=== PATIENT | male | born 1930 | race Caucasian/White ===

== ENCOUNTER → 2017-03-24 | Day surgery (SDC) | payer OTHER ==
[2017-03-18 10:03] VITALS: Ht 171.5 cm; Wt 88.6 kg
[~2017-03-24] VITALS: Ht 171.5 cm; Wt 88.6 kg
[~2017-03-24] MED LIST: 500ML BSS 0.3ML EPI 1:1000PF IRRIG ONE; ACETAMINOPHEN 325 MG TAB PO PRN; ADVIN10/60 INH; ALL300 PO; AMVISC PLUS 0.8ML SYRINGE INT OCU ONE; ATROPINE SULFATE 0.1 MG/ML 5ML SYR IV PRN; AcetaZOLAMIDE 250 MG TAB PO SCH; BETAXOLOL HCL 0.25% OP SUSP PER DROP CHARGE OPR SCH; BRIMONIDINE TART 0.2% OP SOLN PER DROP CHARGE ONE; BSS FLUSH ONE; CLR10 PO; DIFL0.0519; DMX250; DTRSR/2 PO; ENDOCOAT 0.85ML SYRINGE INT OCU ONE; EpHEDrine SULFATE INJ 50 MG/ML AMP IV PRN; EpINEphrine INJ 1MG/ML AMP 1 MG/ML AMP ONE; FIBER PO; HYT/2 PO; LACTATED RINGER'S 1000ML 500 ML IV SCH; LIDOCAINE 4% OP SOLN DROP CHARGE ONE; LIDOCAINE 4% OP SOLN DROP CHARGE OPR SCH; LIDOCAINE HCL 1% MPF 2 ML VIAL ONE; LORA-741 PO; MIDAZOLAM HCL 1 MG/ML 2ML VIAL ONE; MOXIFLOXACIN OPH SOLN PER DROP CHARGE ONE; OCUCOAT 1 ML SOLN IO ONE; OFLO0.3S OP; ONDANSETRON INJ 2 MG/ML 2 ML VIAL IV PRN; POVIDONE-IODINE OP SOLN 30 ML BTL ONE; PROPARACAINE 0.5% OP SOLN PER DROP CHARGE OPR SCH; PRT40 PO; PRVC/40 PO; TOBRAMYCIN/DEXAMETHASONE OPH OINT PER APPLN CHARGE ONE; VERA180T15 PO
--- NOTE | 2017-03-24 06:40 | History & Physical Bridge - [place] ---
H&P Re-Evaluation Bridge Note: I have examined the patient, reviewed the History & Physical and in the interval since the performance of the History & Physical I have noted the following changes of clinical significance: No changes noted
[2017-03-24] MEDS: PHENYLEPHRINE HCL 2.5% OP SOLN PER DROP CHARGE OPR SCH ×2 (07:00→07:05)
[2017-03-24] MEDS: TROPICAMIDE 1% OP SOLN PER DROP CHARGE OPR SCH ×2 (07:01→07:07)
[2017-03-24] MEDS: CYCLOPENTOLATE HCL 1% OP SOLN PER DROP CHARGE OPR SCH ×2 (07:02→07:08)
[2017-03-24] MEDS: MOXIFLOXACIN OPH SOLN PER DROP CHARGE OPR SCH ×2 (07:03→07:14)
--- NOTE | 2017-03-24 08:05 | Discharge Instructions-SurgCtr ---
Discharge Instructions Date of Service Mar 24, 2017. Visit Reason for Visit: Cataract Right Eye Discharge Discharge Diagnosis / Problem: lens implant right eye Discharge Goals Goal(s): Improve function Activity Recommendations Activity Limitations: resume your previous activity Lifting Limitations: no more than 10 pounds Exercise/Sports Limitations: gradually increase as tolerated May Resume Sexual Activity: when tolerated Shower/Bathe: tomorrow Driving or Machine Use: resume 1 day after discharge Anesthesia . Post Anesthesia Instructions: If you have had General Anesthesia or IV Sedation: * Do not drive today. * Resume driving when surgeon permits. * Do not make important decisions or sign legal documents today. * Call surgeon for: 1. Temperature elevations greater than 101 degrees F. 2. Uncontrollable pain. 3. Excessive bleeding. 4. Persistent nausea and vomiting. 5. Medication intolerance (nausea, vomiting or rash). * For nausea and vomiting use only clear liquids such as: tea, soda, bouillon until nausea subsides, then gradually increase diet as tolerated. * If you have any concerns or questions, call your surgeon's office. If physician is unavailable and it is an emergency, call 911 or go to the nearest emergency room. . Instructions / Follow-Up Instructions / Follow-Up ACTIVITY RECOMMENDATIONS: * Light activities. * Mild irritation and blurred vision are common for the first few days. * You may walk outside, read, watch television. * Redness around the white part of the eye is common. MEDICATIONS: Resume previous medications unless instructed otherwise by your surgeon. * Take white Diamox (Acetazolamide) tablet at 1 pm today. Start all eye drops at 1 pm today: * Eye drops (today and tomorrow): Durezol - one drop in operative eye every 3 hours while awake Ofloxacin - one drop in operative eye every 3 hours while awake SPECIAL CARE INSTRUCTIONS: * Tape plastic shield over eye to sleep at night. Call your doctor at with any concerns or problems. FOLLOW UP VISIT: Follow-up with Dr Hughes at [place] office as scheduled. Diet Recommendations Home Diet: no limitations Procedures Procedures Performed: cataract extraction with lens implant Pending Studies Studies pending at discharge: no Medical Emergencies . Who to Call and When: Medical Emergencies: If at any time you feel your situation is an emergency, please call 911 immediately. . Non-Emergent Contact Non-Emergency issues call your: Wire Rope Sling Maker Call Non-Emergent contact if: your pain is not controlled [phone] . . "Provider Documentation" section prepared by Lavon Hughes. .
--- NOTE | 2017-03-24 08:06 | [facility] Operative Report ---
Operative Report Date of Service Mar 24, 2017. Operative Report 1. PREOPERATIVE DIAGNOSIS: Senile nuclear cataract, right eye. 2. POSTOPERATIVE DIAGNOSIS: Senile nuclear cataract, right eye. 3. PROCEDURE: Phacoemulsification of right cataract with posterior chamber lens implant, type [employer]ch [employer] Lomb, model MI60L, power +21.0 diopters. ANESTHESIA: Local standby. SURGEON: Dr. Hughes. COMPLICATIONS: None. OPERATING TIME: 10 minutes. 4. OPERATION AND FINDINGS: DESCRIPTION OF PROCEDURE: The right pupil was dilated. The anesthetic was administered using a topical technique. The right eye was prepped and draped. A speculum was placed. A clear corneal incision was formed. The chamber was filled with Amvisc Plus and Endocoat. Epinephrine solution was used. A paracentesis was placed. A capsulorrhexis was performed. The nucleus was hydrodissected. A dense lens was removed with phacoemulsification. Time was 7.15 seconds. The aspiration unit was used to remove the cortex. The capsule was filled with Amvisc Plus. The lens implant was folded and placed into the capsule. The incision was hydrated. The Amvisc was aspirated. The wound was secure. The chamber was deep. The pupil was round. Brimonidine, TobraDex ointment and Vigamox solution were placed. The speculum was removed. The patient was returned to the Recovery Room in stable condition. I attest to the content of the Intraoperative Record and any orders documented therein. Any exceptions are noted below. The scribe's documentation has been prepared in my presence, under my direction and personally reviewed by me in its entirety. I confirm that the note above accurately reflects all work, treatment, procedures, and medical decision making performed by me. I personally scribed for Lavon Hughes M.D. (ALISA) on 03/24/17 at 08:06. Electronically submitted by Araceli Vieyra ([facility]).
[2017-03-24 08:10] VITALS: TEMP 36.5
--- NOTE | 2017-03-24 08:19 | Anesthesia Progress Nt - [facility] ---
Anesthesia Post Op Note Date & Time Mar 24, 2017 at 08:19 Vital Signs Pain Intensity: 0 Vital Signs Past 12 Hours Date Time Temp Pulse Resp B/P (MAP) Pulse Ox O2 Delivery O2 Flow Rate FiO2 03/24/17 08:10 36.5 68 16 156/84 (108) 96 Room Air 03/24/17 06:47 36.5 79 20 171/95 (120) 94 Room Air Notes Mental Status: alert / awake / arousable, participated in evaluation Pt Amnestic to Procedure: Yes Nausea / Vomiting: adequately controlled Pain: adequately controlled Airway Patency, RR, SpO2: stable & adequate BP & HR: stable & adequate Hydration State: stable & adequate Anesthetic Complications: no major complications apparent
[2017-03-24 08:33] VITALS: BP 125/68; PULSE 68; O2SAT 95
== END | disposition home or self-care (01) ==
LOC: X.SURG 06:28
PROVIDERS: ATTEND Specialist
DX: H25.11 Age-related nuclear cataract, right eye (principal); I10 Essential (primary) hypertension

== ENCOUNTER → 2017-04-16 | Outpatient (CLI) | payer OTHER ==
[~2017-04-16] MED LIST changes: -500ML BSS 0.3ML EPI 1:1000PF IRRIG ONE; -ACETAMINOPHEN 325 MG TAB PO PRN; -AMVISC PLUS 0.8ML SYRINGE INT OCU ONE; -ATROPINE SULFATE 0.1 MG/ML 5ML SYR IV PRN; -AcetaZOLAMIDE 250 MG TAB PO SCH; -BETAXOLOL HCL 0.25% OP SUSP PER DROP CHARGE OPR SCH; -BRIMONIDINE TART 0.2% OP SOLN PER DROP CHARGE ONE; -BSS FLUSH ONE; -ENDOCOAT 0.85ML SYRINGE INT OCU ONE; -EpHEDrine SULFATE INJ 50 MG/ML AMP IV PRN; -EpINEphrine INJ 1MG/ML AMP 1 MG/ML AMP ONE; -LACTATED RINGER'S 1000ML 500 ML IV SCH; -LIDOCAINE 4% OP SOLN DROP CHARGE ONE; -LIDOCAINE 4% OP SOLN DROP CHARGE OPR SCH; -LIDOCAINE HCL 1% MPF 2 ML VIAL ONE; -MIDAZOLAM HCL 1 MG/ML 2ML VIAL ONE; -MOXIFLOXACIN OPH SOLN PER DROP CHARGE ONE; -OCUCOAT 1 ML SOLN IO ONE; -ONDANSETRON INJ 2 MG/ML 2 ML VIAL IV PRN; -POVIDONE-IODINE OP SOLN 30 ML BTL ONE; -PROPARACAINE 0.5% OP SOLN PER DROP CHARGE OPR SCH; -TOBRAMYCIN/DEXAMETHASONE OPH OINT PER APPLN CHARGE ONE
[2017-04-16 14:07] LABS: BLOOD UREA NITROGEN 14 mg/dl (7-18); BUN/CREATININE RATIO 9.9 (10-20); CALCIUM 8.9 mg/dl (8.5-10.1); CARBON DIOXIDE 27 mmol/L (21-32); CHLORIDE 106 mmol/L (98-107); GLUCOSE 141 mg/dl (70-99); POTASSIUM 4.1 mmol/L (3.5-5.1); SODIUM 141 mmol/L (136-145)
== END | disposition home or self-care (01) ==
LOC: C.LAB1850 11:37
PROVIDERS: ATTEND Physician Assistant Medical
DX: R42 Dizziness and giddiness (principal)

== ENCOUNTER → 2017-05-03 | Outpatient (CLI) | payer OTHER ==
[2017-05-03 11:45] LABS: PROSTATE SPECIFIC ANTIGEN 0.019 ng/ml (0.000-4.000); THYROID STIMULATING HORMONE 1.15 uIu/ml (0.300-4.500)
== END | disposition home or self-care (01) ==
LOC: C.LAB1850 10:01
PROVIDERS: ATTEND Physician Assistant Medical
DX: R68.89 Other general symptoms and signs (principal); C61 Malignant neoplasm of prostate

== ENCOUNTER → 2017-09-06 | Outpatient (CLI) | payer OTHER ==
--- NOTE | 2017-09-06 12:01 | DIAGNOSTIC IMAGING REPORT ---
CHEST 2 VIEWS ROUTINE HISTORY: 86 years-old Male R05 [id number] acute cough COMPARISON: Chest radiograph 04/28/2015 TECHNIQUE: PA and lateral views of the chest FINDINGS: Cardiac silhouette is mildly enlarged. Atherosclerosis of the aorta. No pneumothorax, pleural effusion, focal airspace consolidation or overt pulmonary edema. Bones of the chest appear grossly intact. IMPRESSION: No acute process. The above report was generated using voice recognition software. It may contain grammatical, syntax or spelling errors. Electronically signed by: Eliot Purcell M.D. 09/06/2017 12:00 PM Dictated Date/Time: 09/06/2017 11:59 AM
== END | disposition home or self-care (01) ==
LOC: C.RAD1850 11:38
PROVIDERS: ATTEND Physician Assistant Medical
DX: R05 Cough (principal)

== ENCOUNTER 2019-01-17 14:54 | Observation (INO) ==
[2019-01-17 15:31] LABS: Basophils # (auto) 0.03 K/uL (0-0.2); Basophils % (auto) 0.5 %; Eosinophils # (auto) 0.16 K/uL (0-0.5); Eosinophils % (auto) 2.4 %; Hematocrit (blood only) 43.6 % (42-52); Immature Granulocytes # (auto) 0.02 K/uL (0.00-0.02); Immature Granulocytes % (auto) 0.3 %; Lymphocytes # (auto) 1.35 K/uL (1.2-3.4); Lymphocytes % (auto) 20.5 %; Mean Corpuscular Hgb Conc 34.4 g/dL (32-36); Mean Corpuscular Volume 88.6 fL (80-100); Mean Platelet Volume 9.7 fL (7.4-10.4); Monocytes # (auto) 0.53 K/uL (0.11-0.59); Monocytes % (auto) 8.1 %; Neutrophils # (auto) 4.48 K/uL (1.4-6.5); Neutrophils % (auto) 68.2 %; Platelet Count 122 K/uL (130-400); RDW Coefficient of Variation 14.1 % (11.5-14.5); RDW Standard Deviation 45.7 fL (36.4-46.3); Red Blood Count 4.92 M/uL (4.7-6.1); White Blood Count 6.57 K/uL (4.8-10.8)
[2019-01-17 15:40] LABS: INR 1.1 (0.9-1.1); Partial Thromboplastin Time 27.2 Seconds (21.0-31.0); Prothrombin Time 10.9 Seconds (9.0-12.0)
[2019-01-17 15:51] LABS: Alanine Aminotransferase 18 U/L (12-78); Albumin Level 3.6 gm/dl (3.4-5.0); Aspartate Aminotransferase 15 U/L (15-37); BUN Creatinine Ratio 10.2 (10-20); Blood Urea Nitrogen 12 mg/dl (7-18); Calcium 9.3 mg/dl (8.5-10.1); Carbon Dioxide 28 mmol/L (21-32); Chloride 107 mmol/L (98-107); Est GFR (African American) 61.8; Est GFR (Non-African American) 53.4; Glucose 83 mg/dl (70-99); Magnesium 2.3 mg/dl (1.8-2.4); Sodium 142 mmol/L (136-145)
[2019-01-17 15:55] LABS: Alkaline Phosphatase 90 U/L (45-117); Bilirubin,Total 0.7 mg/dl (0.2-1); Globulin 3.5 gm/dl (2.5-4.0); Total Protein 7.1 gm/dl (6.4-8.2); Troponin I < 0.015 ng/ml (0-0.045)
--- NOTE | 2019-01-17 15:58 | CT Scan Report ---
CT head/brain wo con CT DOSE: 638.56 mGycm HISTORY: Mental status change Stroke evaluation TECHNIQUE: Multiaxial CT images of the head were performed without the use of intravenous contrast. A dose lowering technique was utilized adhering to the principles of ALARA. Comparison: MRI 09/26/2018 Findings: The paranasal sinuses and mastoid air cells are clear. The calvarium and skull base are int act. The ventricles and sulci are within normal limits. There is no mass, hematoma, midline shift, or acute infarct. 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 Moderate periventricular chronic small v essel change throughout both cerebral hemispheres. Ventricular system is midline. Impression: 1. Chronic and pre-existing change. 2. No acute intracranial abnormality. The above report was generated using voice recognition software. It may contain grammatical, syntax or spelling errors. Electronically signed by: Don Morfin M.D. 01/17/2019 3:56 PM
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
[2019-01-17] MEDS ORDERED: MAGNESIUM HYDROXIDE SUSP 30 ML UDC PO PRN (19:32)
[2019-01-17] MEDS ORDERED: PHARMACIST DISCHARGE MED REC CONSULT PRN (19:32)
[2019-01-17] MEDS ORDERED: METOPROLOL TARTRATE 1 MG/ML VIAL IV PRN (19:32)
[2019-01-17] MEDS ORDERED: ONDANSETRON INJ 2 MG/ML 2 ML VIAL IV PRN (19:32)
[2019-01-17] MEDS ORDERED: ONDANSETRON 8MG OD TAB PO PRN (19:32)
[2019-01-17] MEDS ORDERED: DOCUSATE SODIUM 100 MG CAP PO PRN (19:32)
[2019-01-17] MEDS ORDERED: TRIAMCINOLONE ACET 0.1% CR 15 GM TUBE TOP PRN (19:32)
[2019-01-17] MEDS ORDERED: ACETAMINOPHEN 325 MG TAB PO PRN (19:32)
[2019-01-17 20:31] LABS: Lyme Ab IgG w/WB Rflx Negative (Negative)
[2019-01-17 20:33] LABS: Lyme Ab IgM w/WB Rflx Equivocal (Negative)
[2019-01-17] MEDS ORDERED: GADOBUTROL 65ML VIAL IV PRN (21:27)
--- NOTE | 2019-01-17 21:29 | Magnetic Resonance Report ---
MR angio head wo con HISTORY: 88 years-old Male Stroke-like sx acute dizziness with strokelike symptoms COMPARISON: ] MRI brain and CTA head of same day TECHNIQUE: MRI of the head was obtained without IV contrast utilizing 3-D [id number]-[id number] sequencing w ith MIP reformats. All measurements were obtained according to NASCET criteria. FINDINGS: The bilateral internal carotid arteries, middle and anterior cerebral arteries are widely patent and within normal limits. The left vertebral artery appears to be dominant. The right before segment appe ars to terminate into the right PICA. Basilar artery is unremarkable. origin of the left emt paramedic ior cerebral artery. Bilateral posterior cerebral arteries appear widely patent and unremarkable. No aneurysm, dissection, high-grade stenosis or proximal branch occlusion identified. IMPRESSION: Unremarkable MRA of the head. The above report was generated using voice recognition software. It may contain grammatical, syntax o r spelling errors. Electronically signed by: Eliot Purcell M.D. 01/17/2019 9:28 PM
[2019-01-17] MEDS: PANTOprazole 40 MG TAB PO SCH (21:39)
[2019-01-17] MEDS: OXYBUTYNIN CHLORIDE 5 MG TAB PO SCH (21:39)
[2019-01-17] MEDS: VERAPAMIL HCL 180 MG TABCR PO SCH (21:39)
[2019-01-17] MEDS: FLUTICASONE/SALMETEROL 100/50 (ADVAIR) 14 PUFF/1 INHALER INH SCH (21:39)
[2019-01-17] MEDS: LORazepam 0.5 MG TAB PO PRN (21:42)
--- NOTE | 2019-01-17 21:52 | Magnetic Resonance Report ---
MR brain wo con HISTORY: 88 years-old Male Stroke-like sx acute dizziness with elevated blood pressure, blurry visio n, left-sided headache and strokelike symptoms COMPARISON: MRA of the head and neck of same day, brain MRI 09/26/2018 TECHNIQUE: Multiplanar multisequence MRI of the brain was obtained without the use of IV contrast. FINDINGS: Large sxczo-ug-wnpy supervisor long goods localizer images demonstrate no gross extracranial abnormality. There is no restricted diffusion to suggest acute or subacute infarction. Midline structures including the corpu s callosum, brainstem, optic chiasm, pituitary and pineal glands appear unremarkable on the sagittal T1 series. No cerebellar tonsillar herniation. Degenerative changes noted about the imaged cervical s pine. No acute intracranial hemorrhage, midline shift, abnormal extra-axial collections, hydrocephalus or i ntracranial mass. 7 mm remote lacunar infarction of the right thalamus. Age-related involutional goncalves ges with mild ex vacuo ventriculomegaly. Moderate T2/FLAIR hyperintensities about the white matter hollingsworth ggest chronic microvascular ischemic disease. Major flow voids at the level the skull base appear unr emarkable. Mild mucosal thickening of the paranasal sinuses. Prior bilateral cataract repair. Skull a nd soft tissues are within normal limits. IMPRESSION: 1. No acute intracranial abnormality, specifically no acute or subacute infarction. 2. Age-related involutional changes with moderate chronic microvascular ischemic disease. 3. Subcentimeter remote lacunar infarction of the right thalamus. The above report was generated using voice recognition software. It may contain grammatical, syntax o r spelling errors. Electronically signed by: Eliot Purcell M.D. 01/17/2019 9:51 PM
--- NOTE | 2019-01-17 21:59 | Magnetic Resonance Report ---
MR angio neck wo/w con HISTORY: 88 years-old Male Stroke-like sx acute dizziness with elevated blood pressure and acute str okelike symptoms COMPARISON: MRI brain and MRA head of same day TECHNIQUE: MRA of the neck was obtained both with and without the use of 8.5 mL Gadavist utilizing 3- D [id number]-mg-muhtmj sequencing with MIP reformats. All measurements were obtained according to NASCET cr iteria. FINDINGS: The large ehjsk-tb-oikb local delivery driver localizer images demonstrate no gross abnormality. Cardiomegaly. Motion degraded exam. Visualized bilateral common carotid arteries appear to be patent. Bilateral internal carotid arteries also appear to be patent. Luminal narrowing of less than 50% involves the proximal r ight ICA, likely secondary to atherosclerotic plaque formation. Dominant left vertebral artery with b ilateral vertebral arteries appear to be patent. The distal right vertebral artery appears to termina te into the right PICA. There is no aneurysm, dissection, high-grade stenosis or proximal branch occl usion identified. IMPRESSION: 1. Luminal narrowing of less than 50% involves the proximal right ICA, likely secondary to underlying after atherosclerotic plaque formation. 2. Otherwise unremarkable MRA of the neck. The above report was generated using voice recognition software. It may contain grammatical, syntax o r spelling errors. Electronically signed by: Eliot Purcell M.D. 01/17/2019 9:58 PM
[2019-01-18] MEDS: PANTOprazole 40 MG TAB PO SCH ×2 (08:06→20:57)
[2019-01-18] MEDS: LISINOPRIL 5 MG TAB PO SCH (08:06)
[2019-01-18] MEDS: TERAZOSIN HCL 1 MG CAP PO SCH (08:06)
[2019-01-18] MEDS: PRAVASTATIN SOD 40 MG TAB PO SCH (08:06)
[2019-01-18] MEDS: OXYBUTYNIN CHLORIDE 5 MG TAB PO SCH ×2 (08:06→20:57)
[2019-01-18] MEDS: FLUTICASONE/SALMETEROL 100/50 (ADVAIR) 14 PUFF/1 INHALER INH SCH ×2 (08:06→20:56)
[2019-01-18] MEDS: VERAPAMIL HCL 180 MG TABCR PO SCH (08:06)
[2019-01-18] MEDS: ALLOPURINOL 300 MG TAB PO SCH (08:07)
[2019-01-18] MEDS ORDERED: ASPIRIN 81 MG ECTAB PO SCH (09:45)
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
[2019-01-18] MEDS: LORazepam 0.5 MG TAB PO PRN (20:59)
--- NOTE | 2019-01-18 21:25 | Hospitalist Progress Note ---
Date of Service January 18, 2019 Assessment & Plan (1) Lightheadedness: Likely related to hypertensive urgency Improved but still present despite improved blood pressures -Continue to monitor (2) Hypertensive urgency: Blood pressures 199/137 on admission, now much improved -Continue lisinopril 5 mg daily and home verapamil 180 mg daily -Titrate up on doses as needed (3) Hyperlipidemia: continue home pravastatin 20 mg daily (4) HTN (hypertension): As above, continue home meds (5) GERD (gastroesophageal reflux disease): continue home pantoprazole twice daily-has a history of PUD with gastric and duodenal ulcers in 2014 related to aspirin use (6) Anxiety: Rare ativan use, continue Ativan as needed (7) Gout: continue home allopurinol (8) Uses inhaler device: 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 (9) Basal cell carcinoma: L ear, plans for OR on 02.15 (10) Headache: Persists but is mild, could be related to hypertensive urgency Lyme titer is equivocal for IgM-Western blot pending -Continue acetaminophen as needed -No need to treat with doxycycline unless Western blot returns positive (11) History of stroke: 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 Has a mild frontal headache, no nausea but has a low appetite which his states is usual for him. He denies any further blurry vision. Denies chest pain or shortness of breath. He did work with PT and OT today and was a little unsteady on his feet as per nursing and PT notes. Telemetry with normal sinus rhythm with rates in the 60s to 80s. Blood pressure has improved since admission. I discussed the case with neurology. Review of Systems Review of Systems: All systems reviewed & are unremarkable except as noted in HPI & below Physical Exam Constitutional: WD/WN, vitals as above Eyes: PERRL, conjunctivae normal, anicteric sclerae ENMT: external ear and nose normal, oropharynx normal Neck: trachea midline, no thyromegaly Respiratory: normal respiratory effort, lungs clear to auscultation Cardiovascular: RRR, no murmur, no edema Gastrointestinal (Abdomen): normal bowel sounds, soft, nontender, no hepatosplenomegaly Musculoskeletal: Extremities: extremities normal to inspection; no cyanosis and no clubbing Skin: no rashes, warm and dry Neurologic: moves all extremities and awake; no focal motor deficits Psychiatric: A+Ox3, euthymic affect Results & Data Vital Signs (Past 12 Hours) Vital Signs Temp Pulse Pulse Resp BP Pulse Ox 01/18/19 19:27 36.5 C 66 19 112/65 98 01/18/19 17:24 62 01/18/19 15:52 36.5 C 70 17 110/64 94 01/18/19 12:00 36.2 C L 74 18 117/66 98 PG Care Time/CCT Total # of Minutes Spent Total Time Spent with Patient: Total time spent is greater than 50% in coordination of care (as documented) at patient's floor/unit and/or counseling patient:
[2019-01-19 06:34] LABS: Basophils # (auto) 0.03 K/uL (0-0.2); Basophils % (auto) 0.4 %; Eosinophils # (auto) 0.24 K/uL (0-0.5); Eosinophils % (auto) 3.4 %; Hematocrit (blood only) 41.3 % (42-52); Hemoglobin 14.4 g/dL (14.0-18.0); Immature Granulocytes # (auto) 0.01 K/uL (0.00-0.02); Immature Granulocytes % (auto) 0.1 %; Lymphocytes # (auto) 1.32 K/uL (1.2-3.4); Lymphocytes % (auto) 18.4 %; Mean Corpuscular Hgb Conc 34.9 g/dL (32-36); Mean Corpuscular Volume 88.8 fL (80-100); Mean Platelet Volume 9.6 fL (7.4-10.4); Monocytes # (auto) 0.68 K/uL (0.11-0.59); Monocytes % (auto) 9.5 %; Neutrophils # (auto) 4.88 K/uL (1.4-6.5); Neutrophils % (auto) 68.2 %; Platelet Count 128 K/uL (130-400); RDW Coefficient of Variation 14.1 % (11.5-14.5); RDW Standard Deviation 45.6 fL (36.4-46.3); Red Blood Count 4.65 M/uL (4.7-6.1); White Blood Count 7.16 K/uL (4.8-10.8)
[2019-01-19 07:02] LABS: BUN Creatinine Ratio 9.7 (10-20); Calcium 8.9 mg/dl (8.5-10.1); Creatinine Clr Calc Pharmacy 42.8 ml/min; Est GFR (African American) 60.6; Est GFR (Non-African American) 52.3; Potassium 3.9 mmol/L (3.5-5.1)
[2019-01-19] MEDS: CLOPIDOGREL BISULFATE 75 MG TAB PO SCH (08:14)
[2019-01-19] MEDS: FLUTICASONE/SALMETEROL 100/50 (ADVAIR) 14 PUFF/1 INHALER INH SCH ×2 (08:14→20:15)
[2019-01-19] MEDS: PRAVASTATIN SOD 40 MG TAB PO SCH (08:15)
[2019-01-19] MEDS: ALLOPURINOL 300 MG TAB PO SCH (08:15)
[2019-01-19] MEDS: PANTOprazole 40 MG TAB PO SCH ×2 (08:15→20:14)
[2019-01-19] MEDS: LISINOPRIL 5 MG TAB PO SCH (08:15)
[2019-01-19] MEDS: TERAZOSIN HCL 1 MG CAP PO SCH (08:16)
[2019-01-19] MEDS: OXYBUTYNIN CHLORIDE 5 MG TAB PO SCH ×2 (08:16→20:14)
[2019-01-19] MEDS: VERAPAMIL HCL 180 MG TABCR PO SCH (08:17)
[2019-01-19] MEDS ORDERED: LISINOPRIL 5 MG TAB PO SCH (09:00)
--- NOTE | 2019-01-19 19:58 | Hospitalist Progress Note ---
Date of Service January 19, 2019 Assessment & Plan (1) Lightheadedness: Likely related to hypertensive urgency and now completely resolved as blood pressures are much improved (2) Hypertensive urgency: Blood pressures 199/137 on admission, now much improved but remains slightly elevated at times -Increase lisinopril to 10 mg daily and 10 you home verapamil 180 mg daily -Titrate up on doses as needed (3) Hyperlipidemia: continue home pravastatin 20 mg daily (4) HTN (hypertension): As above, continue home verapamil and increase lisinopril 10 mg daily, and terazosin 2 mg daily Continue to monitor (5) GERD (gastroesophageal reflux disease): continue home pantoprazole twice daily-has a history of PUD with gastric a nd duodenal ulcers in 2015 related to aspirin use (6) Anxiety: Rare ativan use, continue Ativan as needed (7) Gout: No acute flare Continue home allopurinol (8) Uses inhaler device: 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 (9) Basal cell carcinoma: L ear, plans for OR on 02.15 (10) Headache: Now resolved and was likely related to hypertensive urgency which is now also resolved Lyme titer is equivocal for IgM-Western blot pending -Continue acetaminophen as needed -No need to treat with doxycycline unless Western blot returns positive (11) History of stroke: 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 with no residual deficits -Needs antiplatelet drug-has a history of PUD on aspirin -Started on Plavix 75 mg daily -Is on pravastatin-will increase dose to 40 mg -Echocardiogram with bubble study is negative for intra-atrial shunt (12) CKD (chronic kidney disease) stage 3, GFR 30-59 ml/min: GFR usually in the mid 40s Creatinine here stable and around baseline at 1.24 Avoid nephrotoxins -Renally dose all medications -Continues on NIKKO inhibitor (13) Thrombocytopenia: Platelets mildly low at 128-historically he has run on the lower side but this is the lowest he has been No evidence of bleeding, not overly concerning MCV is normal which makes B12 deficiency less likely Other cell lines are normal -Continue to follow over time (14) DVT prophylaxis: SCDs, and add Lovenox Disposition-repeat PT/OT evaluations recommending and patient has referral to [facility] He is medically stable for discharge at this time, awaiting insurance authorization He can remain on telemetry overnight Subjective Feeling much improved. No headache, no dizziness. Denies chest pain or shortness of breath. Still feeling a little off balance with walking. No nausea and is tolerating p.o. Blood pressures are much improved. Telemetry with normal sinus rhythm with rates in the 70s to 80s, he had a 25-second burst of atrial tachycardia Review of Systems Review of Systems: All systems reviewed & are unremarkable except as noted in HPI & below Physical Exam Constitutional: WD/WN, vitals as above Eyes: PERRL, conjunctivae normal, anicteric sclerae ENMT: external ear and nose normal, oropharynx normal Neck: trachea midline, no thyromegaly Respiratory: normal respiratory effort, lungs clear to auscultation Cardiovascular: RRR, no murmur, no edema Gastrointestinal (Abdomen): normal bowel sounds, soft, nontender, no hepatosplenomegaly Musculoskeletal: Extremities: extremities normal to inspection; no cyanosis and no clubbing Skin: no rashes, warm and dry Neurologic: moves all extremities and awake; no focal motor deficits Psychiatric: A+Ox3, euthymic affect Results & Data Vital Signs (Past 12 Hours) Vital Signs Temp Pulse Pulse Resp BP BP Pulse Ox 01/19/19 19:25 36.7 C 70 19 139/73 94 01/19/19 16:00 78 01/19/19 15:30 36.7 C 79 18 110/67 91 01/19/19 11:33 36.5 C 75 18 138/80 93 Laboratory Results 01/19/19 Range/Units 05:44 Sodium 141 (136-145) mmol/L Potassium 3.9 (3.5-5.1) mmol/L Chloride 108 H (98-107) mmol/L Carbon Dioxide 27 (21-32) mmol/L Anion Gap 6.0 (3-11) BUN 12 (7-18) mg/dl Creatinine 1.24 (0.6-1.4) mg/dl Est Cr Clr Drug Dosing 42.8 ml/min Est GFR ( Amer) 60.6 Est GFR (Non-Af Amer) 52.3 BUN/Creatinine Ratio 9.7 L (10-20) Glucose 98 (70-99) mg/dl Calcium 8.9 (8.5-10.1) mg/dl CBC notable for platelets 128, otherwise normal Diagnostic Findings Echocardiogram-normal EF, negative bubble study Lyme disease Western blot pending PG Care Time/CCT Total # of Minutes Spent Total Time Spent with Patient: Total time spent is greater than 50% in coordination of care (as documented) at patient's floor/unit and/or counseling patient:
[2019-01-19] MEDS: LORazepam 0.5 MG TAB PO PRN (20:18)
[2019-01-20] MEDS: TERAZOSIN HCL 1 MG CAP PO SCH (07:34)
[2019-01-20] MEDS: OXYBUTYNIN CHLORIDE 5 MG TAB PO SCH (07:34)
[2019-01-20] MEDS: ALLOPURINOL 300 MG TAB PO SCH (07:34)
[2019-01-20] MEDS: PANTOprazole 40 MG TAB PO SCH (07:34)
[2019-01-20] MEDS: FLUTICASONE/SALMETEROL 100/50 (ADVAIR) 14 PUFF/1 INHALER INH SCH (07:35)
[2019-01-20] MEDS: CLOPIDOGREL BISULFATE 75 MG TAB PO SCH (07:35)
[2019-01-20] MEDS: VERAPAMIL HCL 180 MG TABCR PO SCH (07:35)
[2019-01-20 07:56] LABS: Basophils # (auto) 0.04 K/uL (0-0.2); Basophils % (auto) 0.5 %; Eosinophils # (auto) 0.22 K/uL (0-0.5); Hematocrit (blood only) 44.2 % (42-52); Hemoglobin 15.4 g/dL (14.0-18.0); Immature Granulocytes # (auto) 0.02 K/uL (0.00-0.02); Immature Granulocytes % (auto) 0.3 %; Lymphocytes # (auto) 1.36 K/uL (1.2-3.4); Lymphocytes % (auto) 18.3 %; Mean Corpuscular Hgb Conc 34.8 g/dL (32-36); Mean Corpuscular Volume 88.9 fL (80-100); Mean Platelet Volume 9.9 fL (7.4-10.4); Monocytes # (auto) 0.61 K/uL (0.11-0.59); Monocytes % (auto) 8.2 %; Neutrophils # (auto) 5.18 K/uL (1.4-6.5); Neutrophils % (auto) 69.7 %; Platelet Count 138 K/uL (130-400); RDW Coefficient of Variation 14.1 % (11.5-14.5); RDW Standard Deviation 46.1 fL (36.4-46.3); Red Blood Count 4.97 M/uL (4.7-6.1); White Blood Count 7.43 K/uL (4.8-10.8)
[2019-01-20] MEDS ORDERED: ENOXAPARIN INJ 40 MG/0.4 ML SYR SQ SCH (08:00)
[2019-01-20 08:25] LABS: BUN Creatinine Ratio 10.7 (10-20); Calcium 9.3 mg/dl (8.5-10.1); Creatinine Clr Calc Pharmacy 39.6 ml/min; Est GFR (African American) 55.2; Est GFR (Non-African American) 47.6; Potassium 4.2 mmol/L (3.5-5.1)
[2019-01-20] MEDS ORDERED: PRAVASTATIN SOD 40 MG TAB PO SCH (09:00)
[2019-01-20] MEDS ORDERED: LISINOPRIL 10 MG TAB PO SCH (09:00)
[2019-01-20 23:35] LABS: 18KDIGG Band NONREACTIVE (NONREACTIVE); 23KDIGG Band NONREACTIVE (NONREACTIVE); 23KDIGM Band REACTIVE (NONREACTIVE); 28KDIGG Band NONREACTIVE (NONREACTIVE); 30KDIGG Band NONREACTIVE (NONREACTIVE); 39KDIGG Band NONREACTIVE (NONREACTIVE); 39KDIGM Band NONREACTIVE (NONREACTIVE); 41KDIGG Band REACTIVE (NONREACTIVE); 41KDIGM Band REACTIVE (NONREACTIVE); 45KDIGG Band REACTIVE (NONREACTIVE); 58KDIGG Band NONREACTIVE (NONREACTIVE); 66KDIGG Band REACTIVE (NONREACTIVE); 93KDIGG Band NONREACTIVE (NONREACTIVE); Lyme Antibodies, WB IgG NEGATIVE (NEGATIVE); Lyme Antibodies, WB IgM POSITIVE (NEGATIVE)
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
== END 2019-01-20 17:39 | disposition home health service (06) ==
LOC: 2S 14:54 → ED 14:54 → SUATTDRO 18:35 → 2S 19:02
DX: R51 Headache; D69.6 Thrombocytopenia, unspecified; N18.3 Chronic kidney disease, stage 3 (moderate); Z86.73 Personal history of transient ischemic attack (TIA), and cerebral infarction without residual deficits; I12.9 Hypertensive chronic kidney disease with stage 1 through stage 4 chronic kidney disease, or unspecified chronic kidney disease; M10.9 Gout, unspecified; R42 Dizziness and giddiness; C44.219 Basal cell carcinoma of skin of left ear and external auricular canal; K21.9 Gastro-esophageal reflux disease without esophagitis; Z79.899 Other long term (current) drug therapy; E78.5 Hyperlipidemia, unspecified; I16.0 Hypertensive urgency

== ENCOUNTER 2021-08-20 02:56 | Observation (INO) ==
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
[2021-08-20] MEDS ORDERED: SODIUM CHLORIDE 0.9% 1000ML 1,000 ML IV SCH (03:15)
[2021-08-20 03:38] LABS: Basophils # (auto) 0.01 K/uL (0-0.2); Basophils % (auto) 0.1 %; Eosinophils # (auto) 0.15 K/uL (0-0.5); Eosinophils % (auto) 1.8 %; Hematocrit (blood only) 39.6 % (42-52); Hemoglobin 13.4 g/dL (14.0-18.0); Immature Granulocytes # (auto) 0.03 K/uL (0.00-0.02); Immature Granulocytes % (auto) 0.4 %; Lymphocytes # (auto) 0.78 K/uL (1.2-3.4); Lymphocytes % (auto) 9.4 %; Mean Corpuscular Hemoglobin 30.8 pg (25-34); Mean Corpuscular Hgb Conc 33.8 g/dL (32-36); Monocytes % (auto) 7.2 %; Neutrophils # (auto) 6.72 K/uL (1.4-6.5); Neutrophils % (auto) 81.1 %; Platelet Count 141 K/uL (130-400); RDW Coefficient of Variation 14.4 % (11.5-14.5); RDW Standard Deviation 48.3 fL (36.4-46.3); Red Blood Count 4.35 M/uL (4.7-6.1); White Blood Count 8.29 K/uL (4.8-10.8)
[2021-08-20 03:52] LABS: Partial Thromboplastin Ratio 1.1; Partial Thromboplastin Time 28.7 Seconds (21.0-31.0); Prothrombin Time 10.6 Seconds (9.0-12.0)
[2021-08-20 04:00] LABS: Troponin I < 0.03 ng/ml (0-0.04)
[2021-08-20 04:04] LABS: Alanine Aminotransferase 11 U/L (7-52); Albumin Globulin Ratio 1.3 (0.9-2); Albumin Level 3.2 gm/dl (3.4-5.0); Alkaline Phosphatase 59 U/L (34-104); Anion Gap 5 (3-11); Aspartate Aminotransferase 12 U/L (13-39); BUN Creatinine Ratio 11.1 (10-20); Bilirubin,Total 0.7 mg/dl (0.2-1.0); Blood Urea Nitrogen 12 mg/dl (6-23); Calcium 8.1 mg/dl (8.5-10.1); Carbon Dioxide 24 mmol/L (21-32); Chloride 107 mmol/L (98-107); Est GFR (African American) 70.6 ml/min; Globulin 2.4 gm/dl (2.5-4.0); Glucose 150 mg/dl (70-99(Fasting)); Magnesium 2.1 mg/dl (1.7-2.4); Potassium 3.8 mmol/L (3.5-5.1); Sodium 136 mmol/L (136-145); Total Protein 5.6 gm/dl (6.0-8.3)
[2021-08-20 04:17] LABS: Influenza A virus by PCR Negative (Neg); Influenza B virus by PCR Negative (Neg); RSV by PCR Negative (Neg); SARS CoV2 RNA(COVID-19) InHosp NEGATIVE (Negative)
[2021-08-20] MEDS ORDERED: OPTIRAY 320 100ml IV ONE (04:33)
[2021-08-20 04:39] LABS: Appearance Urine Clear (Clear); Bilirubin Urine Negative (Negative); Blood Urine Negative (Negative); Color Urine Yellow; Glucose Urine UA Negative (Negative); Ketones Urine Negative (Negative); Leukocyte Esterase Urine Negative (Negative); Nitrite Urine Negative (Negative); Protein Urine Negative (Negative); Urobilinogen Urine Negative (Negative); pH Urine 7.5 (4.5-7.5)
--- NOTE | 2021-08-20 07:00 | XRay Report ---
XR chest 1V portable CLINICAL HISTORY: Sepsis. COMPARISON STUDY: Chest radiograph September 06, 2017. FINDINGS: Lung volumes are normal. There is no pneumothorax or pleural effusion. Note is made of card iomegaly without evidence for pulmonary edema. Mild bibasilar opacities favor atelectasis. There is n o consolidation to suggest pneumonia. IMPRESSION: 1. Bibasilar opacities which favor atelectasis. 2. No consolidation to suggest pneumonia. Cardiomegaly. ACT 112: Negative or not required by law. Electronically signed by: Rik Holder M.D. 08/20/2021 6:58 AM
--- NOTE | 2021-08-20 07:05 | CT Scan Report ---
CT SCAN OF THE BRAIN WITHOUT IV CONTRAST CLINICAL HISTORY: Fall. COMPARISON STUDY: CT of the brain dated 01/17/2019. TECHNIQUE: Unenhanced axial CT scan of the brain is performed from the vertex to the skull base. A do se lowering technique was utilized adhering to the principles of ALARA. CT DOSE: 1041.13 mGy.cm FINDINGS: Brain parenchyma: There are age-related involutional changes noting mild to moderate subcortical and periventricular microangiopathic change. There is no hemorrhage, mass effect, or evidence of acute t erritorial ischemia by CT criteria. Small chronic lacunar infarcts are noted in the right thalamus an d the left caudate head. [place]-white matter differentiation is preserved. No extra-axial fluid collect ion is seen. Ventricles, sulci, cisterns: Prominent secondary to involutional change. Intracranial vasculature: There is atherosclerotic calcification of the cavernous carotid and vertebr al arteries. Calvarium: The skeletal structures are osteopenic. No depressed calvarial fracture is identified. Sinuses and mastoids: The paranasal sinuses are clear. The mastoid air cells are well pneumatized. Orbits: The bony orbits are grossly intact. There are bilateral ocular lens implants. IMPRESSION: There is no hemorrhage, mass effect, or evidence of acute territorial ischemia by CT pradeep jennings. ACT 112: Negative or not required by law. Electronically signed by: Chauncey Arambula M.D. 08/20/2021 7:03 AM
--- NOTE | 2021-08-20 07:14 | CT Scan Report ---
CT OF THE CHEST WITH IV CONTRAST CLINICAL HISTORY: Left-sided chest pain. Evaluate for pneumonia. COMPARISON STUDY: Chest radiograph September 16, 2017 and August 20, 2021. TECHNIQUE: Following IV administration of 94 mL of Optiray, helical axial images of the chest were o btained. Sagittal and coronal reconstructions were viewed as well as maximal intensity projections o n an independent 3-D workstation. Automated exposure control was utilized for the study. A dose low ering technique was utilized adhering to the principles of ALARA. CT DOSE: 324.30 mGy.cm FINDINGS: There is no evidence for traumatic injury to the thoracic aorta. Moderate cardiomegaly is noted. There is no pericardial effusion. No enlarged thoracic lymph nodes are present. Central airway s are patent. There is no pneumothorax or pleural effusion. Subpleural opacities favor atelectasis. T here is no consolidation to suggest pneumonia. There are several old thoracic spine compression fract ures. Note is made of an acute nondisplaced fracture of the lateral left fourth rib. There are multip le additional old left rib fractures. A 1.5 cm hypervascular focus within the right hepatic lobe is o f doubtful significance. This may reflect a shunt. A suspected cyst within the upper pole the right k idney is partially imaged. A 1.9 cm cystic lesion within the pancreatic body is partially imaged on t his examination. There are smaller cystic lesions visualized portions of the pancreas. IMPRESSION: 1. Acute nondisplaced fractures of the lateral left fourth rib. Multiple old left-sided rib fractures . No pneumothorax. 2. Subpleural opacities which favor atelectasis. No consolidation to suggest pneumonia. 3. Cardiomegaly. 4. Partially visualized 1.9 cm cystic lesion within the pancreatic body. Several smaller cystic pancr eatic lesions. 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 ACT 112: Negative or not required by law. Electronically signed by: Rik Holder M.D. 08/20/2021 7:12 AM
[2021-08-20] MEDS ORDERED: traMADol HCL 50 MG TABLET PO PRN (08:32)
--- NOTE | 2021-08-20 09:43 | Magnetic Resonance Report ---
Brain MRA HISTORY: Headache. Dizziness. TECHNIQUE: 3-D [id number] MRA of the brain was performed without contrast. COMPARISON STUDY: Head CT 08/20/2021. Brain MRA 01/17/2019. FINDINGS: Visualized intracranial internal carotid arteries, distal vertebral arteries, and basilar a rtery are widely patent. There is no significant stenosis, occlusion, or aneurysm seen within the peterson ateral ACAs, MCAs, or department clerk. Redemonstration of a dominant distal left vertebral artery. The distal ri ght vertebral artery terminates in the right posterior inferior cerebellar artery. This is considered to be a normal variant. IMPRESSION: No significant stenosis, occlusion, or aneurysm within the [place]. ACT 112: Negative or not required by law. Electronically signed by: Dada Chandler M.D. 08/20/2021 9:42 AM
[2021-08-20] MEDS ORDERED: ALBUTEROL HFA 8 GM INHALER INH PRN (10:08)
[2021-08-20] MEDS ORDERED: ALUMINUM/MAGNESIUM SUSP 30 ML UDC PO PRN (10:08)
[2021-08-20] MEDS ORDERED: ONDANSETRON INJ 2 MG/ML 2 ML VIAL IV PRN (10:08)
[2021-08-20] MEDS ORDERED: POLYETHYLENE (MIRALAX) 17 GM PACK PO PRN (10:08)
[2021-08-20] MEDS ORDERED: BENZONATATE 100 MG CAPSULE PO PRN (10:08)
[2021-08-20] MEDS ORDERED: ACETAMINOPHEN 325 MG TAB PO PRN (10:08)
[2021-08-20] MEDS ORDERED: MAGNESIUM HYDROXIDE SUSP 30 ML UDC PO PRN (10:08)
[2021-08-20] MEDS ORDERED: GADOBUTROL 65ML VIAL IV ONE (10:15)
--- NOTE | 2021-08-20 10:17 | Magnetic Resonance Report ---
MRI OF THE BRAIN WITHOUT CONTRAST CLINICAL HISTORY: Headache. Dizziness. Evaluate for vertebrobasilar stroke. COMPARISON STUDY: MRI of the brain January 17, 2019. Head CT August 20, 2021. TECHNIQUE: Utilizing a 1.5 Sagrario magnet and dedicated coil, multiplanar, multiecho imaging of the bra in was performed without IV contrast. FINDINGS: There are no foci of restricted diffusion to suggest acute infarct. No acute intracranial h emorrhage, midline shift or mass effect is present. Ventricular system is stable. Basal cisterns are patent. There are no extra-axial collections. Flow-voids for the major intracranial vessels are prese nt. Moderate atrophy is again noted. White matter T2 hyperintense foci are similar to previous MRI an d favor small vessel disease. No intracranial masses are identified on this unenhanced examination. T here is an old lacunar infarct within the right cerebellar hemisphere. A 1 cm old infarct within the right thalamus is present. Calvarial signal is normal. There is no mastoid fluid. IMPRESSION: 1. No acute intracranial findings. 2. Moderate atrophy and small vessel disease. 3. 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 Old lacunar infarct within the right cerebellar hemisphere. ACT 112: Negative or not required by law. Electronically signed by: Rik Holder M.D. 08/20/2021 10:16 AM
--- NOTE | 2021-08-20 10:24 | Magnetic Resonance Report ---
NECK MRA HISTORY: Headache. Dizziness. Assess for stroke. TECHNIQUE: [id number] and gadolinium-enhanced MRA of the neck was performed both before and after the intravenous administration of contrast. All measurements were calculated based on NASCET criteri a. COMPARISON STUDY: Neck MRA 01/17/2019. FINDINGS: The aortic arch and proximal great vessels are widely patent. There is no significant sten osis, occlusion, or dissection identified within the bilateral common carotid, left internal carotid, or vertebral arteries. Hypoplastic right vertebral artery, unchanged. No change in the focal calcifi ed plaque within the takeoff of the right ICA resulting in approximately 30% focal narrowing. The rem aining right ICA is widely patent. IMPRESSION: 1. No change in the 30% focal narrowing within the takeoff of the right ICA due to the calcified plaq ue. 2. Otherwise, unremarkable MRA of the neck. Electronically signed by: Dada Chandler M.D. 08/20/2021 10:23 AM
[2021-08-20] MEDS: MECLIZINE HCL 25 MG TAB PO PRN (11:32)
[2021-08-20] MEDS: VERAPAMIL HCL 180 MG TABCR PO SCH (11:33)
[2021-08-20] MEDS: PANTOprazole 40 MG TAB PO SCH ×2 (11:34→20:09)
[2021-08-20] MEDS: PRAVASTATIN SOD 40 MG TAB PO SCH (11:34)
[2021-08-20] MEDS: allopurinoL 300 MG TAB PO SCH (11:35)
[2021-08-20] MEDS: CLOPIDOGREL BISULFATE 75 MG TAB PO SCH (11:35)
[2021-08-20] MEDS: HEPARIN SOD 5,000 UNIT/0.5 ML VIAL SQ SCH ×2 (11:37→20:09)
[2021-08-20] MEDS: FLUTICASONE/VILANTEROL 100/25MCG 14 PUFFS/INHALER INH SCH (11:43)
[2021-08-20] MEDS: SODIUM CHLORIDE 0.9% 1000ML 1,000 ML IV SCH (12:31)
--- NOTE | 2021-08-20 12:32 | Electrocardiogram Report ---
Test Reason : Blood Pressure : / mmHG Vent. Rate : 075 BPM Atrial Rate : 075 BPM P-R Int : 158 ms QRS Dur : 078 ms QT Int : 416 ms P-R-T Axes : 023 013 035 degrees QTc Int : 464 ms Normal sinus rhythm Normal ECG When compared with ECG of 17-JAN-2019 15:31, No significant change was found Confirmed by Gallo Scruggs ([id number]) on 08/20/2021 12:31:51 PM Referred By: REFERRED SELF Confirmed By:Gallo Scruggs
--- NOTE | 2021-08-20 15:50 | XCELERA ---
[id number] \\[id number]_[id number]}___[id number]
[2021-08-20] MEDS: CLOTRIMAZOLE 10 MG TROCHE BUCCAL SCH ×3 (16:10→22:08)
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
[2021-08-21] MEDS: SODIUM CHLORIDE 0.9% 1000ML 1,000 ML IV SCH (02:05)
[2021-08-21] MEDS: CLOTRIMAZOLE 10 MG TROCHE BUCCAL SCH ×5 (06:16→23:00)
[2021-08-21 06:54] LABS: Basophils # (auto) 0.02 K/uL (0-0.2); Basophils % (auto) 0.3 %; Eosinophils # (auto) 0.16 K/uL (0-0.5); Hematocrit (blood only) 40.1 % (42-52); Hemoglobin 13.5 g/dL (14.0-18.0); Immature Granulocytes # (auto) 0.02 K/uL (0.00-0.02); Immature Granulocytes % (auto) 0.3 %; Lymphocytes # (auto) 1.33 K/uL (1.2-3.4); Lymphocytes % (auto) 16.6 %; Mean Corpuscular Hemoglobin 30.4 pg (25-34); Mean Corpuscular Hgb Conc 33.7 g/dL (32-36); Mean Corpuscular Volume 90.3 fL (80-100); Mean Platelet Volume 9.8 fL (7.4-10.4); Monocytes # (auto) 0.59 K/uL (0.11-0.59); Monocytes % (auto) 7.4 %; Neutrophils # (auto) 5.88 K/uL (1.4-6.5); Neutrophils % (auto) 73.4 %; Platelet Count 126 K/uL (130-400); RDW Coefficient of Variation 14.3 % (11.5-14.5); RDW Standard Deviation 47.2 fL (36.4-46.3); Red Blood Count 4.44 M/uL (4.7-6.1)
[2021-08-21 07:18] LABS: BUN Creatinine Ratio 9.5 (10-20); Est GFR (African American) 73.1 ml/min; Est GFR (Non-African American) 63.1 ml/min; Potassium 3.8 mmol/L (3.5-5.1)
[2021-08-21] MEDS: CLOPIDOGREL BISULFATE 75 MG TAB PO SCH (08:27)
[2021-08-21] MEDS: allopurinoL 300 MG TAB PO SCH (08:27)
[2021-08-21] MEDS: VERAPAMIL HCL 180 MG TABCR PO SCH (08:28)
[2021-08-21] MEDS: FLUTICASONE/VILANTEROL 100/25MCG 14 PUFFS/INHALER INH SCH (08:28)
[2021-08-21] MEDS: PANTOprazole 40 MG TAB PO SCH ×2 (08:28→20:00)
[2021-08-21] MEDS: HEPARIN SOD 5,000 UNIT/0.5 ML VIAL SQ SCH ×2 (08:29→20:02)
[2021-08-21] MEDS: PRAVASTATIN SOD 40 MG TAB PO SCH (08:29)
[2021-08-21] MEDS: MECLIZINE HCL 25 MG TAB PO PRN (13:23)
--- NOTE | 2021-08-21 16:07 | Hospitalist Progress Note ---
Date of Service August 21, 2021 Assessment & Plan (1) Dizziness: Plan: 89-year-old white male who recently had a mild flareup of asthma/bronchitis treated with doxycycline/prednisone taper and his inhalers * Respiratory symptoms improved with doxycycline/prednisone taper but now with vague weakness/dizziness * Symptoms very vague and sound vertiginous in nature. * ? BPPV/labyrinthitis in the setting of recent viral infection * given underlying cerebrovascular disease, MRI/MRI of the brain and neck completed showing no evidence of vertebrobasilar infarct or acute intracranial process * Patient not cooperative with assessing for nystagmus given his lack of under standing * no evidence of arrhythmia on cardiac monitoring * Attempted to assess TMs bilaterally but canals notable for cerumen-- may need to add flonase * Empirically add Antivert. Given nystagmus noted today and reported h/o vertigo per -- suspect this is the biggest contributing factor. Asked PT to perform Ana maneuver * orthostatic VS ordered but none seen in the chart. Per PT, drop in SBP by 20 points. Again, will ask staff to obtain VS. This could be related to some dehydration (as clinically seemed dry upon presentation). His Myrbetriq and oxybutynin may be contributing to this. Add compression stockings * seen by PT/OT-- plan for hopeful D/C tomorrow with home services * echo done: EF 60 to 65%. No regional wall motion abnormalities. Mild AR. Compared to 01/18, mitral regurgitation now appears to be moderate but otherwise no significant change (2) Ambulatory dysfunction: Plan: * See above * Consult PT/OT * Patient lives with his who is hopeful to get him back home if able (3) Rib fractures: Plan: * Acute and old rib fractures noted secondary to #1 and 2 * Ultram as needed for pain. We will avoid narcotics given his age and risk for altered mental status with this * Encourage incentive spirometry as patient does seem to have associated atelectasis on imaging * I do not believe that the atelectatic changes is in relation to an infectious process as he recently completed antibiotics, he has a normal white blood cell count, he is afebrile and his respiratory symptoms have resolved but patient is at risk for secondary pneumonia (4) Thrush: Plan: * Patient recently completed antibiotic and tapering course of prednisone in addition is on Advair * Mycelex lito on board (5) Malignant neoplasm of prostate: Plan: * Follows urology (6) Asthma: Plan: * Sounds as if patient had a recent exacerbation that was mild * Just completed a tapering course of prednisone and full course of antibiotic (doxycycline) * Currently without respiratory complaints. Moving adequate air on exam. No adventitious breath sounds. 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 Patel. Further orders as warranted Admission and Anticipated Discharge Date Admission Date: August 20, 2021 Subjective Patient seen on daily rounds today. Overall, feeling better. Still fatigued but not as dizzy as when he came in. Seen by therapy today and overall did well but did have mild dizziness. In addition, therapy reports that patient had a 20point drop in BP . Patient seen again in the afternoon and she reports that patient has suffered from vertigo in the past requiring naa procedure as an OP ("years ago"). Review of Systems Review of Systems: All systems reviewed and are unremarkable except as noted in HPI and below Currently, Denies fevers, chills, headache, nasal congestion, sore throat, cough, chest pain, shortness of breath, palpitations, orthopnea, PND, abdominal pain, vomiting, diarrhea, constipation, dysuria, hematuria, frequency, back pain, joint pain or swelling, easy bruising or bleeding, skin lesions or rashes. Physical Exam Physical Exam: General: Patient laying supine in his hospital bed. Overall, appears much less fatigued today. Looks well, does not appear ill or toxic HEENT:buccal mucosa is moist today. white patched on tongue improved. cooperative with eye tracking today and does appear to have left sided nystagmus in the left lateral gaze. Neck: No JVD. Negative hepatojugular reflex Cardiac: Distant heart sounds but RRR Lungs: CTA without W/R/R Abdomen: Normoactive X4. Soft and nontender in all quadrants. Extremities: No peripheral clubbing cyanosis or edema Neuro: A&O X4. Cranial nerves II through XII are grossly intact no focal neuro deficits. Skin: Healing bruise to the right anterior/lower chest wall Psych: Appropriate affect Results & Data Results & Data ([facility]) Vital Signs (Past 12 Hours) Vital Signs Temp Pulse Pulse Resp BP BP Pulse Ox 08/21/21 15:06 37.0 C 75 20 154/71 H 92 08/21/21 11:09 36.8 C 79 20 145/84 H 95 08/21/21 07:35 72 08/21/21 07:34 36.8 C 72 20 171/82 H 92 08/21/21 05:44 20 94 08/21/21 04:47 18 95 Laboratory Results 08/21/21 06:09 08/21/21 06:09 PG Care Time/CCT Total # of Minutes Spent Total Time Spent with Patient: Total time spent is greater than 50% in coordination of care (as documented) at patient's floor/unit and/or counseling patient: Coding Level of Care Code 03019 Subseq Obs Care Lvl 2 Diagnoses Dizziness R42 Ambulatory dysfunction R26.2 Rib fractures S22.49XA Thrush B37.0 Malignant neoplasm of prostate C61 Asthma J45.909 CKD (chronic kidney disease) stage 3, GFR 30-59 ml/min N18.3 Cerebrovascular disease I67.9
[2021-08-22] MEDS: CLOTRIMAZOLE 10 MG TROCHE BUCCAL SCH (06:14)
[2021-08-22] MEDS: allopurinoL 300 MG TAB PO SCH (08:33)
[2021-08-22] MEDS: HEPARIN SOD 5,000 UNIT/0.5 ML VIAL SQ SCH (08:33)
[2021-08-22] MEDS: VERAPAMIL HCL 180 MG TABCR PO SCH (08:34)
[2021-08-22] MEDS: PRAVASTATIN SOD 40 MG TAB PO SCH (08:34)
[2021-08-22] MEDS: PANTOprazole 40 MG TAB PO SCH (08:34)
[2021-08-22] MEDS: CLOPIDOGREL BISULFATE 75 MG TAB PO SCH (08:34)
[2021-08-22] MEDS: FLUTICASONE/VILANTEROL 100/25MCG 14 PUFFS/INHALER INH SCH (08:35)
[2021-08-22] MEDS ORDERED: bisacodyL 10 MG SUPP PR STA (08:46)
[2021-08-22] MEDS ORDERED: POLYETHYLENE (MIRALAX) 17 GM PACK PO STA (08:46)
[2021-08-22] MEDS ORDERED: MECLIZINE HCL 25 MG TAB PO ONE (09:00)
--- NOTE | 2021-08-22 15:08 | Discharge Summary ---
Date of Service August 22, 2021 Admission HPI Per Admitting Provider Mr. Dinh is an 89 y/o WM with a PMHx of A.Fib, CVD s/p old WI without sequella on Plavix, Prostate CA s/p prostatectomy, HTN, Asthma, CKD-III, and HLD. Was in his usual state of health until ~2 weeks ago when he developed flu-like symptoms including a productive cough, nasal and chest congestion along with audible wheezing. In addition, his appetite was poor and he was weak which causing his gait to be somewhat staggering and he seemed to be "falling into things". Was seen by PCP and Dx'ed with Bronchitis. Influenza/Covid testing was negative. Rx: Doxycycline and tapering course of prednisone. His respiratory symptoms improved but his weakness did not. His appetite remains poor. He is dizzy and very vague in the description of this. At times feels like the room is spinning but other times, seems lightheaded.Does have associated nausea without emesis. Denies syncope, CP, palpitations, current cough, SOB. In the overnight hours, he awake to use the bathroom and felt dizzy to the point that he was unable to walk. Used the bedside urinal as he knew he could not make it to the bathroom and then "flopped back into bed" landing on his chest. He developed chest wall pain. HE called for his and he knew he "couldn't get up" and EMS services were summoned. W/U in the ED: pt afebrile and HD stable. Lab data pretty much unremarkable (CBC/CMP WNL). Procalcitonin negative. Troponin undetectable. COVID/influenza testing negative. Urinalysis is not grossly infected. EKG is nonacute. Chest x-ray shows bibasilar opacities but a CT scan of the chest shows findings consistent with atelectasis. In addition, he has an acute nondisplaced fracture of the fourth lateral rib with multiple old fractures of the left ribs. CT scan of the head shows no acute intracranial process. Given his profound weakness and inability to ambulate at this time, he will be hospitalized for further evaluation and care. Principal Diagnosis 1. Ambulatory dysfunctionsuspected to be multifactorial 2. Dizzinesslikely secondary to both mild orthostatic hypotension and vertigo 3. Mild dehydrationresolved 4. Constipation 5. Dry mouth 6. Thrush 7. Acute and chronic rib fractures Discharge Exam General: Patient laying supine in his hospital bed. Overall, appears much less fatigued today. Looks well, does not appear ill or toxic HEENT:buccal mucosa is moist today. white patched on tongue improved. Does appear to have persistent but very subtle nystagmus in the left lateral gaze Neck: No JVD. Negative hepatojugular reflex Cardiac: Distant heart sounds but RRR Lungs: CTA without W/R/R Abdomen: Normoactive X4. Soft and nontender in all quadrants. Extremities: No peripheral clubbing cyanosis or edema Neuro: A&O X4. Cranial nerves II through XII are grossly intact no focal neuro deficits. Skin: Healing bruise to the right anterior/lower chest wall Psych: Appropriate affect Discharge Data Allergies Allergy/AdvReac Type Severity Reaction Status Date / Time No Known Allergies Allergy Verified 08/20/21 03:08 Consultations 08/20/21 07:59 ED Decision to Admit Stat Ordered Studies 08/20/21 03:05 CT head/brain wo con Urgent IMPRESSION: There is no hemorrhage, mass effect, or evidence of acute territorial ischemia by CT criteria. 08/20/21 04:11 CT chest diagnostic w con Urgent IMPRESSION: 1. Acute nondisplaced fractures of the lateral left fourth rib. Multiple old left-sided rib fractures. No pneumothorax. 2. Subpleural opacities which favor atelectasis. No consolidation to suggest pneumonia. 3. Cardiomegaly. 4. Partially visualized 1.9 cm cystic lesion within the pancreatic body. Several smaller cystic pancreatic lesions. 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 08/20/21 08:32 MR angio head wo con Stat IMPRESSION: No significant stenosis, occlusion, or aneurysm within the [place]. MR angio neck wo/w con Stat IMPRESSION: 1. No change in the 30% focal narrowing within the takeoff of the right ICA due to the calcified plaque. 2. Otherwise, unremarkable MRA of the neck. MR brain wo con Stat IMPRESSION: 1. No acute intracranial findings. 2. Moderate atrophy and small vessel disease. 3. 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 Old lacunar infarct within the right cerebellar hemisphere. Hospital Course (1) Dizziness: 89-year-old white male who recently had a mild flareup of asthma/bronchitis treated with doxycycline/prednisone taper and his inhalers * Respiratory symptoms improved with doxycycline/prednisone taper but now with vague weakness/dizziness * Symptoms very vague and sounded vertiginous in nature. * ? BPPV/labyrinthitis in the setting of recent viral infection * given underlying cerebrovascular disease, MRI/MRI of the brain and neck completed showing no evidence of vertebrobasilar infarct or acute intracranial process * Patient not cooperative with assessing for nystagmus given his lack of understanding (initially--but on hospital day #1 was more cooperative with this and he did appear to have nystagmus in the left lateral gaze. Ativan started and did improve his symptoms). Therapy did see patient and do a modified Lorie maneuver which seemed to help his symptoms. In talking with his , patient has a history of vertigo in the past which required vestibular therapy as an outpatient * Attempted to assess TMs bilaterally but canals notable for cerumen * orthostatic VS assess and he did have a drop in his SBP of 20 lbs (from 160- 140). He was slightly dizzy with this but it was self-limiting. Started him on compression stockings and behavioral modification discussed with both him and his to sit from a laying position. After approximately a minute, he is to stand and before walking, he should get his bearings for approximately 1 minute. This will give his blood pressure time to rebound. May carry crackers/water at his bedside to eat a few crackers and drink some water prior to getting up to help with this orthostasis * no evidence of arrhythmia on cardiac monitoring * echo done: EF 60 to 65%. No regional wall motion abnormalities. Mild AR. Compared to 01/18, mitral regurgitation now appears to be moderate but otherwise no significant change * At this time, I believe patient to be at his baseline. His dizziness has improved. He has been seen by therapy who is recommending he use a wheeled walker to decrease/limit his risk of falling at home. In addition, he is being sent home with PT/OT and visiting nurses (2) Ambulatory dysfunction: * See above * Consult PT/OT * Patient lives with his (3) Rib fractures: * Acute and old rib fractures noted secondary to #1 and 2 * Patient got up to go to the bathroom on the day of admission. He felt extremely dizzy and "flopped back into bed". This had happened several days prior as well * He was found to have nondisplaced acute rib fractures of the right fourth rib and multiple old left rib fractures with associated atelectasis * Was started on incentive spirometry * Ultram ordered for pain; however, patient had no reports of pain (4) Thrush: * Patient recently completed antibiotic and tapering course of prednisone in addition is on Advair * Was noted to have very dry mouth but also white patches on the base of his tongue upon presentation * Mycelex lito ordered and clinical evidence of thrush improving (5) Constipation: * ongoing problem for patient (likely a side effects to his anticholinergic medications) * I offered to order him a Dulcolax suppository and MiraLax but he declined as he would feel much more comfortably using his home bathroom. 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 With this small size and his age, would consider repeating imaging to trend but he would not be a candidate for a Whipple should this turn malignant. PCP to follow up on this. (7) Malignant neoplasm of prostate: * Follows urology * patient is s/p prostatectomy * given the removal of his prostate, he will ALWAYS have incontinence. It seems like he is having significant side effects to the anticholinergic medications on board and not gaining much improvement is symptoms. Discussed with his who is going to try holding the oxybutynin and Myrbetriq to see if his side effects improve. If so and his incontinence is unchanged (meaning not much worse, she may consider discontinuing these medications altogether.) Can follow-up with urology regarding this (8) Asthma: * Sounds as if patient had a recent exacerbation that was mild * Just completed a tapering course of prednisone and full course of antibiotic (doxycycline) * Currently without respiratory complaints. Moving adequate air on exam. No adventitious breath sounds. 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 The encounter with the patient was in whole, or in part, for the following medical condition, which is the primary reason for home health care (list medical condition): CVD I certify that, based on my findings, the following services are medically necessary home health services: My clinical findings support the need for the above services because: OT Assess ADL Status and Restore Function w ADLs PT Gait and Balance Training, Strengthening and Safety Skilled Nsg Assessment Skilled Nsg Assess Pt Illness, Disease and Sx Monitoring Further, I certify that my clinical findings support that this patient is homebound (i.e. absences from home require considerable and taxing effort and are for medical reasons or advent services or infrequently or of short duration when for other reasons) because: Transportation Assistance/Unable to Leave Home Unassisted Certification for Home Health Services: Based on the above findings, I certify that this patient is confined to the home and needs intermittent mcc care, physical therapy and/or speech therapy or continues to need occupational therapy. The patient is under my care, and I have initiated the establishment of the plan of care. This patient will be followed by a physician who will periodically review the plan of care. Total Time Total Time Spent Total Time Spent (In Minutes): 35 Discharge Plan Discharge Items Patient Disposition: Home - Home Health Services Reason For Visit: NEAR SYNCOPE Discharge Diagnosis: 1. Dizziness (likely Multifactorial-->) 2. Vertigo (contributing to #1) 3. Orthostatic Hypotension (drop in your blood pressure when you stand) 4. Dehydration- resolved 5. Constipation 6. Acute and Chronic Rib Fracture 7. Thrush Activity: Resume your previous activity Non-emergency contact: Primary Care Provider Call non-emergency contact if: you have any medication questions Follow-up/Referrals: Zev Valdovinos MD [Primary Care Provider] - 08/25/21 8:30 am Diet: Regular Addtl Attending Provider Instructions: * You presented to the emergency department given trouble walking from weakness and dizziness * Given your trouble walking and staggering steps, you sustained rib fractures when you fell into your bed * Fortunately for you, have not had significant rib pain. Can use Tylenol/ibuprofen * I believe your dizziness and trouble walking is likely for multiple reasons. I do believe you are suffering from some vertigo (which you have had in the past). It seems to be improved with Antivert. Continue this medication every 6 hours as needed for dizziness. This will cause lethargy/fatigue * In addition, you were found to have mild orthostatic hypotension (her blood pressure dropped by 20 points when standing from a seated position). This is a common and normal phenomenon. I recommend that you continue wearing the compression stockings as this will help. In addition, sit at the bedside for a minute prior to standing. When you stand, stand at your walker for approximately 1 minute before walking. * We encourage that you continue using the wheeled walker to limit/decrease your risk of falling * I believe the medications that you are taking for your overactive bladder (oxybutynin and Myrbetriq) are significantly contributing to your symptoms. These can cause dry eyes, dry mouth, and constipation. Unfortunately, given the fact that you had your prostate removed, I do not believe we will be able to control your urinary incontinence and I do not think any amount of medications will help with this. It may not be worth the side effect profile. Can hold these medications for now to see how you feel without them * You did seem to have a mild case of thrush (which is a yeast infection in your mouth) likely due to recent treatment with doxycycline and prednisone along with your inhalers. Continue Mycelex troches. Rinse mouth out after using inhalers Pending Studies at Discharge: No Stand-Alone Forms: My [facility], Smoking Cessation Medications and DC Order Prescriptions: New clotrimazole 10 mg Lito 10 mg buccal [id number] Qty: 17 RF: 0 meclizine 25 mg Tablet 25 mg PO Q8H PRN (Reason: dizziness) Qty: 30 RF: 0 Continued pravastatin 40 mg tablet 40 mg PO DAILY Qty: 90 RF: 3 pantoprazole [Protonix] 40 mg tablet,delayed release (DR/EC) 40 mg PO BID Qty: 60 RF: 11 ondansetron 8 mg tablet,disintegrating 8 mg PO BID PRN (Reason: Nausea) Qty: 30 RF: 0 lorazepam 0.5 mg tablet 0.5 mg PO BID PRN (Reason: dizziness or vertigo) Qty: 30 RF: 5 clopidogrel 75 mg tablet 75 mg PO QAM Qty: 90 RF: 3 albuterol sulfate [Ventolin HFA] 90 mcg/actuation HFA aerosol inhaler 2 puff INH Q6H PRN (Reason: shortness of breath or wheezing) Qty: 18 RF: 3 fluocinonide 0.05 % cream 1 applic topical BID Qty: 60 RF: 0 docusate sodium [Colace] 100 mg Capsule 100 mg PO DAILY PRN (Reason: Constipation) RF: 0 acetaminophen [Mapap (acetaminophen)] 325 mg Tablet 650 mg PO Q4H PRN (Reason: pain) Qty: 30 RF: 0 verapamil 180 mg Tablet Extended Release 180 mg PO QAM Qty: 30 RF: 0 allopurinol 300 mg tablet 300 mg PO DAILY RF: 0 benzonatate 100 mg capsule 100 mg PO TID PRN (Reason: Cough) RF: 0 fluticasone propion-salmeterol [Advair Diskus] 100-50 mcg/dose blister with device 1 inh inhalation BID RF: 0 Discontinued oxybutynin chloride 5 mg tablet 5 mg PO QID 90 Days Qty: 360 RF: 3 Myrbetriq 25 mg tablet extended release 24 hr 25 mg PO DAILY Qty: 90 RF: 0 Discharge Orders: Discharge Order (Routine); Ordered 08/22/21 Ordered By: Kelley Vidal Admission Data Admit Date/Time: 08/20/21 08:32 Attending Provider: Kin Whatley Admit Provider: Ambrose Morris Primary Care Provider: Zev Valdovinos Other Providers: Kin Whatley ; [facility],Home Healthcare Other Interventions: Discharge Summary Assessment (RN) Last Done: 08/22/21 13:27 Supervising Physician Co-Signing Physician Notes I supervised Kelley Vidal PA-C on the care of this patient. I interviewed and examined the patient independently of her. The plan is as written in her note except for any following changes/exceptions: None Doing well today. Dizziness improving. Ready for discharge with home services. Coding Level of Care Code 40669 OBS Care - Discharge Diagnoses Dizziness R42 Ambulatory dysfunction R26.2 Rib fractures S22.49XA Thrush B37.0 Malignant neoplasm of prostate C61 Asthma J45.909 CKD (chronic kidney disease) stage 3, GFR 30-59 ml/min N18.3 Cerebrovascular disease I67.9 Pancreatic lesion K86.9 Constipation K59.00
--- NOTE | 2021-08-22 19:12 | Electrocardiogram Report ---
Test Reason : Blood Pressure : / mmHG Vent. Rate : 075 BPM Atrial Rate : 075 BPM P-R Int : 144 ms QRS Dur : 078 ms QT Int : 412 ms P-R-T Axes : 048 049 055 degrees QTc Int : 460 ms Normal sinus rhythm Normal ECG When compared with ECG of 20-AUG-2021 03:01, No significant change was found Confirmed by Gallo Scruggs ([id number]) on 08/22/2021 7:12:16 PM Referred By: REFERRED SELF Confirmed By:Gallo Scruggs
== END 2021-08-22 16:54 | disposition home health service (06) ==
LOC: EDINP 02:56 → ED 02:56 → SUATTDRO 08:32 → EDINP 10:09 → 2N 16:00

== ENCOUNTER 2021-11-04 09:18 | Inpatient (IN) ==
--- NOTE | 2021-11-04 09:35 | Emergency Department Note ---
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 Disposition: Admitted As Inpatient Discharge Instructions Interventions: ED Discharge Assessment Last Done: 11/04/21 16:40 Discharge Problem: Multiple fractures of ribs Qualifiers: Encounter type: initial encounter Fracture type: closed Laterality: left Qualified Code(s): S22.42XA - Multiple fractures of ribs, left side, initial encounter for closed fracture Fall Qualifiers: Encounter type: initial encounter Qualified Code(s): W19.XXXA - Unspecified fall, initial encounter
[2021-11-04 09:46] LABS: Basophils # (auto) 0.01 K/uL (0-0.2); Basophils % (auto) 0.1 %; Eosinophils # (auto) 0.21 K/uL (0-0.5); Eosinophils % (auto) 2.6 %; Hematocrit (blood only) 42.8 % (42-52); Hemoglobin 14.7 g/dL (14.0-18.0); Immature Granulocytes # (auto) 0.04 K/uL (0.00-0.02); Immature Granulocytes % (auto) 0.5 %; Lymphocytes % (auto) 13.6 %; Mean Corpuscular Hemoglobin 30.5 pg (25-34); Mean Corpuscular Hgb Conc 34.3 g/dL (32-36); Mean Corpuscular Volume 88.8 fL (80-100); Mean Platelet Volume 9.6 fL (7.4-10.4); Monocytes % (auto) 7.4 %; Neutrophils % (auto) 75.8 %; Platelet Count 160 K/uL (130-400); RDW Coefficient of Variation 14.5 % (11.5-14.5); RDW Standard Deviation 47.4 fL (36.4-46.3); Red Blood Count 4.82 M/uL (4.7-6.1); White Blood Count 8.06 K/uL (4.8-10.8)
[2021-11-04 09:55] LABS: Prothrombin Time 10.9 Seconds (9.0-12.0)
--- NOTE | 2021-11-04 10:02 | CT Scan Report ---
CT SCAN OF THE BRAIN WITHOUT IV CONTRAST CLINICAL HISTORY: Dizziness. Fall. COMPARISON STUDY: CT of the brain dated 08/20/2021. TECHNIQUE: Unenhanced axial CT scan of the brain is performed from the vertex to the skull base. A do se lowering technique was utilized adhering to the principles of ALARA. The patient was scanned twice due to motion artifact. The examination is compromised by motion artifact. CT DOSE: 1726.00 mGy.cm FINDINGS: Brain parenchyma: There are age-related involutional changes noting mild to moderate subcortical and periventricular microangiopathic change. There is no hemorrhage, mass effect, or evidence of acute t erritorial ischemia by CT criteria. 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 G ray-white matter differentiation is preserved. No extra-axial fluid collection is seen. Ventricles, sulci, cisterns: Prominent secondary to involutional change. Intracranial vasculature: There is atherosclerotic calcification of the cavernous carotid and vertebr al arteries.. Calvarium: The skeletal structures are osteopenic. No depressed calvarial fracture is identified. Sinuses and mastoids: The paranasal sinuses are clear. The mastoid air cells are well pneumatized. Orbits: The bony orbits are grossly intact. There are bilateral ocular lens implants. IMPRESSION: There is no hemorrhage, mass effect, or evidence of acute territorial ischemia by CT rositat dick noting a motion compromised examination. ACT 112: Negative or not required by law. Electronically signed by: Chauncey Arambula M.D. 11/04/2021 10:01 AM
--- NOTE | 2021-11-04 10:10 | CT Scan Report ---
CERVICAL SPINE CT CT DOSE: HISTORY: Dizziness. Fall. trauma TECHNIQUE: Multiaxial CT images of the cervical spine were performed and reformatted in the sagittal and coronal plane without the use of contrast. A dose lowering technique was utilized adhering to th e principles of ALARA. COMPARISON: None. FINDINGS: No fractures. No subluxation. Prevertebral soft tissues and the C1-C2 interval are intact. No pneumothorax. 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 IMPRESSION: No fractures within the cervical spine. ACT 112: Negative or not required by law. Electronically signed by: Dada Chandler M.D. 11/04/2021 10:08 AM
[2021-11-04 10:15] LABS: Troponin I < 0.03 ng/ml (0-0.04)
--- NOTE | 2021-11-04 10:42 | XRay Report ---
SINGLE VIEW PELVIS CLINICAL HISTORY: Fall. Pelvic pain. FINDINGS: 2 AP supine pelvic radiographs are compared to study dated 04/21/2011 and correlated with pe lvic CT dated 04/28/2015. The skeletal structures are osteopenic. There is no radiographic evidence of acute fracture involving the hips or bony pelvis. Moderate arthritic change and joint space narrowin g is noted in the hips. Mild sclerosis is seen in the sacroiliac joints and pubic symphysis. Lumbosac ral spondylosis is partially visualized. The overlying soft tissues are within normal limits. There i s atherosclerotic calcification of the femoral arteries. Surgical clips and phleboliths are noted in the pelvis. IMPRESSION: No acute bony abnormality is identified. Electronically signed by: Chauncey Arambula M.D. 11/04/2021 10:40 AM
[2021-11-04 10:46] LABS: Alanine Aminotransferase 10 U/L (7-52); Albumin Globulin Ratio 1.4 (0.9-2); Albumin Level 3.7 gm/dl (3.4-5.0); Alkaline Phosphatase 73 U/L (34-104); Anion Gap 7 (3-11); BUN Creatinine Ratio 10.3 (10-20); Bilirubin,Total 0.6 mg/dl (0.2-1.0); Blood Urea Nitrogen 12 mg/dl (6-23); Carbon Dioxide 28 mmol/L (21-32); Chloride 104 mmol/L (98-107); Est GFR (African American) 63.7 ml/min; Est GFR (Non-African American) 54.9 ml/min; Globulin 2.6 gm/dl (2.5-4.0); Glucose 119 mg/dl (70-99(Fasting)); Sodium 139 mmol/L (136-145); Total Protein 6.3 gm/dl (6.0-8.3)
--- NOTE | 2021-11-04 11:16 | XRay Report ---
XR ribs LT min 2V w CXR1V CLINICAL HISTORY: trauma. Left posterior rib pain after fall. COMPARISON STUDY: Chest and left rib series 10/10/2021. FINDINGS: There are mildly displaced acute left ninth through 11th rib fractures. There are healing/h ealed additional left-sided rib fractures noted within the mid chest. No pneumothorax. The heart is m ildly enlarged. There is mild interstitial thickening which may be due to the low lung volumes. No ne w focal lung consolidations identified. IMPRESSION: 1. Mildly displaced acute left ninth through 11th rib fractures. No pneumothorax. 2. There are additional healing/healed left-sided rib fractures within the mid chest. ACT 112: Negative or not required by law. Electronically signed by: Dada Chandler M.D. 11/04/2021 11:15 AM
[2021-11-04] MEDS ORDERED: ACETAMINOPHEN 1,000 MG/100 ML VIAL IV STA (11:39)
[2021-11-04] MEDS ORDERED: SODIUM CHLORIDE 0.9% 1000ML 500 ML IV ONE (11:39)
[2021-11-04 11:40] LABS: Potassium 4.2 mmol/L (3.5-5.1)
[2021-11-04] MEDS ORDERED: OPTIRAY 320 100ml IV ONE (11:40)
--- NOTE | 2021-11-04 12:01 | CT Scan Report ---
CT SCAN OF THE ABDOMEN AND PELVIS WITH IV CONTRAST CLINICAL HISTORY: Trauma. Left-sided abdominal wall injury. COMPARISON STUDY: Abdominal CT dated 04/28/2015. TECHNIQUE: Following the IV administration of 95 cc of Optiray 320, CT scan of the abdomen and pelvi s is performed from the lung bases to the proximal femora. Images are reviewed in the axial, sagittal , and coronal planes. IV contrast was administered without complication. A dose lowering technique wa s utilized adhering to the principles of ALARA. CT DOSE: 542.55 mGy.cm FINDINGS: Lung bases: The heart is mildly enlarged and without pericardial effusion. There is trace hemothorax at the left lung base. No basilar pneumothorax is identified. Dependent atelectasis is noted in both lungs. There is no airspace consolidation typical for pneumonia. Low suspicion 4 mm pulmonary nodules are seen at the right lung base seen on images #27 and #54. A tiny hiatal hernia is noted. Liver: The contrast-enhanced liver is normal in size, contour, and attenuation. There is no intrahepa tic biliary ductal dilatation. The hepatic veins and portal veins are patent. Gallbladder: Unremarkable. Spleen: Normal in size and attenuation. Pancreas: The pancreas is moderately atrophic. There are at least 4 cystic lesions identified in the pancreas. The largest measures 1.5 cm as seen on image #146. The duct is normal in caliber. Adrenal glands: Unremarkable. Kidneys: The contrast enhanced kidneys demonstrate cortical atrophy and are without hydronephrosis. T he kidneys enhance symmetrically. There are 2 right renal cysts measure up to 5.0 cm. Abdominal vasculature: The abdominal aorta is normal in course and caliber noting moderate atheroscle rotic calcification. Bowel: There is moderate to advanced colonic diverticulosis without CT evidence of acute diverticulit is. No bowel obstruction is seen. Fecal retention is noted throughout the colon. A duodenal diverticu lum is noted. The appendix is well-visualized and normal. Peritoneum: There is no intraperitoneal free air or abdominal ascites. Lymphadenopathy: None. Pelvic viscera: The bladder is distended but otherwise normal in appearance. The prostate gland is hollingsworth rgically absent. There are bilateral fat-containing groin hernias with evidence of previous bilateral inguinal herniorrhaphy. Numerous surgical clips are seen throughout the pelvis. Skeletal structures: The skeletal structures are osteopenic. There are acute left posterolateral 8th through 12th rib fractures. There are also left anterolateral 5th through 8th rib fractures. There is moderate lumbosacral spondylosis. Degenerative change is noted in the sacroiliac joints. There are m ild chronic superior endplate compression deformity is of T10 and L1. Chronic/healed bilateral rib fr actures are also noted. No lytic or blastic lesions are seen. IMPRESSION: 1. There are acute left-sided rib fractures as detailed above. Note that several ribs are fractured a t 2 sites. 2. There is trace hemothorax at the left lung base. No basilar pneumothorax is identified. 3. There is no evidence of solid organ injury in the abdomen or pelvis. 4. Moderate to advanced colonic diverticulosis without CT evidence of acute diverticulitis. 5. There are least 4 simple cystic lesions identified in the pancreas measuring up to 1.5 cm. 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 Any follow-up should be based on clinical grounds. 6. Cardiomegaly. 7. Additional findings as above. ACT 112: Negative or not required by law. Electronically signed by: Chauncey Arambula M.D. 11/04/2021 11:59 AM
[2021-11-04] MEDS ORDERED: fentaNYL citrate 100 MCG/2 ML VIAL IV PRN (12:20)
--- NOTE | 2021-11-04 14:03 | Electrocardiogram Report ---
Test Reason : Blood Pressure : / mmHG Vent. Rate : 074 BPM Atrial Rate : 074 BPM P-R Int : 120 ms QRS Dur : 076 ms QT Int : 426 ms P-R-T Axes : 017 029 042 degrees QTc Int : 472 ms Normal sinus rhythm Normal ECG When compared with ECG of 21-AUG-2021 13:33, No significant change was found Confirmed by Charbel Barajas ([id number]) on 11/04/2021 2:03:32 PM Referred By: REFERRED SELF Confirmed By:Charbel Barajas
--- NOTE | 2021-11-04 14:40 | CT Scan Report ---
CT chest diagnostic wo con CLINICAL HISTORY: trauma TECHNIQUE: Multidetector row helical CT of the chest was performed. Coronal and sagittal reformations were obtained. Automated dose lowering techniques and/or adjustment according to patient size were u tilized for this exam. Comparison: Comparison is made to CT chest 08/20/2021 FINDINGS: Lungs and pleura: Atelectasis versus scarring is seen in the dependent portions of the lungs. Heart and pericardium: Mitral annular and aortic valvular calcifications are seen. Vessels: Mild atherosclerotic changes in the aorta and coronary arteries. Mediastinum and tucker: Unremarkable. Chest wall and lower neck: Unremarkable. Abdomen: Unremarkable. Bones: Degenerative changes in the thoracic spine. Old healed fractures are seen in the left ribs. IMPRESSION: No acute abnormalities are seen. ACT 112: Negative or not required by law. Electronically signed by: Prince Saucedo M.D. 11/04/2021 2:39 PM
[2021-11-04] MEDS ORDERED: ACETAMINOPHEN 325 MG TAB PO STA ×2 (15:30→17:52)
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
[2021-11-04] MEDS ORDERED: POLYETHYLENE (MIRALAX) 17 GM PACK PO PRN (16:57)
[2021-11-04] MEDS ORDERED: MECLIZINE HCL 25 MG TAB PO PRN (16:57)
[2021-11-04] MEDS ORDERED: oxyCODONE HCL IR 5 MG TAB (IMMEDIATE RELEASE) PO PRN (16:57)
[2021-11-04] MEDS ORDERED: ALBUTEROL HFA 8 GM INHALER INH PRN (16:57)
[2021-11-04] MEDS: LIDOCAINE 5% 1 PATCH TD SCH (17:53)
[2021-11-04 18:18] LABS: Appearance Urine Clear (Clear); Bilirubin Urine Negative (Negative); Blood Urine Negative (Negative); Color Urine Yellow; Glucose Urine UA Negative (Negative); Ketones Urine Negative (Negative); Leukocyte Esterase Urine Negative (Negative); Nitrite Urine Negative (Negative); Protein Urine Negative (Negative); Specific Gravity Urine 1.036 (1.000-1.030); Urobilinogen Urine Negative (Negative); pH Urine 8.5 (4.5-7.5)
[2021-11-04] MEDS: DOCUSATE SODIUM 100 MG CAP PO SCH (20:23)
[2021-11-04] MEDS: PRAVASTATIN SOD 40 MG TAB PO SCH (20:24)
[2021-11-04] MEDS: PANTOprazole 40 MG TAB PO SCH (20:24)
[2021-11-05] MEDS: ONDANSETRON INJ 2 MG/ML 2 ML VIAL IV SCH ×3 (06:44→22:22)
[2021-11-05 06:56] LABS: Basophils # (auto) 0.03 K/uL (0-0.2); Basophils % (auto) 0.3 %; Eosinophils # (auto) 0.18 K/uL (0-0.5); Eosinophils % (auto) 1.8 %; Hematocrit (blood only) 43.2 % (42-52); Hemoglobin 14.8 g/dL (14.0-18.0); Immature Granulocytes # (auto) 0.02 K/uL (0.00-0.02); Immature Granulocytes % (auto) 0.2 %; Lymphocytes # (auto) 1.64 K/uL (1.2-3.4); Lymphocytes % (auto) 16.7 %; Mean Corpuscular Hemoglobin 30.5 pg (25-34); Mean Corpuscular Hgb Conc 34.3 g/dL (32-36); Mean Corpuscular Volume 89.1 fL (80-100); Mean Platelet Volume 9.9 fL (7.4-10.4); Monocytes # (auto) 0.85 K/uL (0.11-0.59); Monocytes % (auto) 8.6 %; Neutrophils # (auto) 7.12 K/uL (1.4-6.5); Neutrophils % (auto) 72.4 %; Platelet Count 185 K/uL (130-400); RDW Coefficient of Variation 14.6 % (11.5-14.5); RDW Standard Deviation 47.5 fL (36.4-46.3); Red Blood Count 4.85 M/uL (4.7-6.1); White Blood Count 9.84 K/uL (4.8-10.8)
[2021-11-05 07:25] LABS: BUN Creatinine Ratio 9.8 (10-20); Calcium 9.1 mg/dl (8.5-10.1); Creatinine Clr Calc Pharmacy 47.5 ml/min; Est GFR (African American) 75.2 ml/min; Est GFR (Non-African American) 64.9 ml/min; Magnesium 1.9 mg/dl (1.7-2.4); Potassium 3.9 mmol/L (3.5-5.1)
--- NOTE | 2021-11-05 07:29 | Hospitalist Progress Note ---
Date of Service November 05, 2021 Assessment & Plan (1) Fall: Plan: Mayo is a 89 year old male w/ PmHx of frequent falls, ambulatory dysfunction, asthma, HTN, HLD, prostate cancer s/p prostatectomy, CKD III, CVA admitted for fall w/ rib fractures to the left 3rd through 12th ribs. Pneumothorax/hemothorax: -CXR w/ evidence for hemothorax and pneumothorax upon admission. -Repeat CXR 11/05 - pneumothorax no longer clearly appreciated. -Repeat CXR if worsening shortness of breath. Rib fractures: -Multiple rib fractures from fall. -Pain management consulted: -poor candidate for nerve block -Lidocaine patch (up to 3), Nucynta 50mg q6h PRN. Fall: -EKG w/ normal sinus rhythm, BMP, CBC, U/A WNL. -Past PT notes w/ symptoms not reproducible w/ head shaking/Lorie. -May be due to underlying gait dysfunction. -PT/OT consulted - recommend PT & rehab or 22/02 home care. -Fall precautions. Dizziness/Ambulatory dysfunction: Orthostatic hypotension -Chronic, as above may have some relation to gait vs inner ear. -has been orthostatic in the past admission. recheck. -Not on any meds to explain orthostasis. -follow -Holding meclizine until further clarification. History of CVA: -Holding Plavix 48 hours post fall. -Continue pravastatin. Pancreatic lesion: -Noted on CT abd/pevl, w/o change from CT chest 08/23 Lower urinary tract symptoms: -History of adenocarcinoma of prostate s/p prostatectomy. -condom catheter -continue mirabegron CKD III: -GFR 55, creat 1.17 on admission. -GFR 65, creat 1.02 today. -Daily BMP. HTN: -Cont verapamil HLD: -continue pravastatin Asthma: -Continue Advair, albuterol Dispo: PCU/Telemetry Code statsu: DNR/DNI F/E/N: Regular diet DVT prophylaxis: SCDs (2) Rib fractures: (3) Lower urinary tract symptoms: (4) Pancreatic lesion: (5) Dizziness: (6) Ambulatory dysfunction: (7) CKD (chronic kidney disease) stage 3, GFR 30-59 ml/min: (8) HTN (hypertension): (9) Hyperlipidemia: (10) Asthma: (11) History of CVA (cerebrovascular accident): Admission and Anticipated Discharge Date Admission Date: November 04, 2021 Supervising Physician Co-Signing Physician Notes Resident Physician Supervision Note: I independently interviewed and examined the patient and verified the vines history and physical, reviewed labs and image studies and agree with resident Dr. Harris findings and care plan. Subjective No overnight events. Patient stated he is not currently experiencing any pain at the left side but the pain is exacerbated with movement. Patient said he has had multiple falls this past year. When asked how many falls he was unsure but stated it has been less than 10. He said he gets a sensation of the room spinning when he has these episodes and finds himself falling. Denies chest pain, shortness of breath, fevers, chills. Review of Systems Review of Systems: as per subjective. Physical Exam Constitutional: WD/WN, vitals as above Eyes: PERRL, conjunctivae normal, anicteric sclerae Respiratory: Mildly diminished breath sounds at left lower lung field, clear to auscultation otherwise. Cardiovascular: RRR, no murmur, no edema Gastrointestinal (Abdomen): normal bowel sounds, soft, nontender, no hepatosplenomegaly Results & Data Results & Data ([facility]) Vital Signs (Past 12 Hours) Vital Signs Temp Pulse Pulse Resp BP Pulse Ox 11/05/21 03:25 36.7 C 74 24 154/85 H 98 11/04/21 22:40 36.6 C 79 24 164/94 H 97 11/04/21 22:18 77 Resident Activity Tracking Resident Involvement: Resident Care Provided Care Provided: Adult Hospital Medicine
--- NOTE | 2021-11-05 08:15 | XRay Report ---
XR chest 1V portable HISTORY: Left-sided rib fractures. evaluate for atelectasis and increase in hemothorax COMPARISON: Chest 11/04/[address] 11/04/2021. FINDINGS: Possible tiny left apical pneumothorax. Trace left hemothorax persists. Multiple acute left -sided rib fractures are again noted. No new focal lung consolidations to suggest pneumonia. No evide nce for pulmonary edema. The heart is mildly enlarged. There is a tortuous thoracic aorta, unchanged. IMPRESSION: 1. Possible tiny left apical pneumothorax. Follow-up recommended. 2. Multiple left-sided rib fractures and a trace left hemothorax remain unchanged. ACT 112: Negative or not required by law. Electronically signed by: Dada Chandler M.D. 11/05/2021 8:14 AM
[2021-11-05] MEDS: FLUTICASONE/VILANTEROL 100/25MCG 14 PUFFS/INHALER INH SCH (08:19)
[2021-11-05] MEDS: LIDOCAINE 5% 1 PATCH TD SCH (08:19)
[2021-11-05] MEDS: MIRABEGRON ER 25 MG TAB PO SCH (08:20)
[2021-11-05] MEDS: VERAPAMIL HCL 180 MG TABCR PO SCH (08:21)
[2021-11-05] MEDS: allopurinoL 300 MG TAB PO SCH (08:21)
[2021-11-05] MEDS: PANTOprazole 40 MG TAB PO SCH ×3 (08:22→21:10)
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
[2021-11-05] MEDS: TAPENTADOL HCL 50 MG TAB PO PRN ×2 (12:43→23:32)
--- NOTE | 2021-11-05 14:47 | XRay Report ---
XR chest 2V PA/lateral CLINICAL HISTORY: eval. pneumothorax TECHNIQUE: AP and lateral radiographs of the chest was obtained. Comparison: Comparison is made to chest one view 11/05/2021 FINDINGS: No lines and tubes are seen. Cardiomegaly is noted. Lungs are underinflated. Faint bilateral airspace opacities are seen in the lower lungs. Previously noted left pneumothorax is not clearly seen on tod ay's exam. IMPRESSION: Previously noted left pneumothorax is no longer clearly appreciated on this exam. Faint bilateral air space opacities may represent atelectasis, pneumonia, and/or aspiration. ACT 112: Negative or not required by law. Electronically signed by: Prince Saucedo M.D. 11/05/2021 2:45 PM
[2021-11-05] MEDS: DOCUSATE SODIUM 100 MG CAP PO SCH ×2 (20:17→21:10)
[2021-11-05] MEDS: PRAVASTATIN SOD 40 MG TAB PO SCH ×2 (20:17→21:10)
[2021-11-05] MEDS ORDERED: ONDANSETRON INJ 2 MG/ML 2 ML VIAL IV PRN (20:27)
--- NOTE | 2021-11-06 06:56 | Hospitalist Progress Note ---
Date of Service November 06, 2021 Assessment & Plan (1) Fall: Plan: Mayo is a 89 year old male w/ PmHx of frequent falls, ambulatory dysfunction, asthma, HTN, HLD, prostate cancer s/p prostatectomy, CKD III, CVA admitted for fall w/ rib fractures to the left 3rd through 12th ribs. Traumatic Pneumothorax/hemothorax: -CXR w/ evidence for hemothorax and pneumothorax upon admission. -Repeat CXR 11/05 - pneumothorax no longer clearly appreciated. Rib fractures: -Multiple rib fractures from fall. -Pain management consulted: -poor candidate for nerve block -Lidocaine patch (up to 3), Nucynta 50mg q6h PRN. Dizziness/Ambulatory dysfunction: Orthostatic hypotension -Chronic, as above may have some relation to gait vs inner ear. -has been orthostatic in the past and this current admission. -Not on any meds to explain orthostasis. -follow -Holding meclizine until further clarification. -consider NIXON stocking for orthostatic hypotension Fall: -EKG w/ normal sinus rhythm, BMP, CBC, U/A WNL. -Past PT notes w/ symptoms not reproducible w/ head shaking/Lorie. -Positive orthostatics this visit, may be contributing to falls. -Gait issues may contribute as well, may warrant further neuro evaluation outpatient. -PT/OT consulted - recommend PT & rehab or 22/02 home care. -Potential transfer to [facility] rehab. -Fall precautions. History of CVA: -Holding Plavix 48 hours post fall. -Continue pravastatin. Pancreatic lesion: -Noted on CT abd/pevl, w/o change from CT chest 08/23 Lower urinary tract symptoms: -History of adenocarcinoma of prostate s/p prostatectomy. -condom catheter -continue mirabegron CKD III: -GFR 55, creat 1.17 on admission. -GFR 57, creat 1.12 today. -Daily BMP. HTN: -Cont verapamil HLD: -continue pravastatin Asthma: -Continue Advair, albuterol Dispo: PCU/Telemetry Code statsu: DNR/DNI F/E/N: Regular diet DVT prophylaxis: SCDs (2) Rib fractures: (3) Lower urinary tract symptoms: (4) Pancreatic lesion: (5) Dizziness: (6) Ambulatory dysfunction: (7) CKD (chronic kidney disease) stage 3, GFR 30-59 ml/min: (8) HTN (hypertension): (9) Hyperlipidemia: (10) Asthma: (11) History of CVA (cerebrovascular accident): Admission and Anticipated Discharge Date Admission Date: November 04, 2021 Supervising Physician Co-Signing Physician Notes Resident Physician Supervision Note: I independently interviewed and examined the patient and verified the vines history and physical, reviewed labs and image studies and agree with resident Dr. Harris findings and care plan. Subjective No overnight events. Patient stated still having pain at times at the left ribs. No shortness of breath or chest pain, fevers, chills. at the bedside stated that her has had a shuffling gait for a while now, no tremors but endorses he has had more issues with memory since his fall in August. He can still do everyday tasks for taking care of himself. Review of Systems Review of Systems: as per subjective. Physical Exam Constitutional: WD/WN, vitals as above Eyes: PERRL, conjunctivae normal, anicteric sclerae Cardiovascular: RRR, no murmur, no edema Gastrointestinal (Abdomen): normal bowel sounds, soft, nontender, no hepatosplenomegaly Results & Data Results & Data ([facility]) Vital Signs (Past 12 Hours) Vital Signs Temp Pulse Pulse Resp BP Pulse Ox 11/06/21 05:35 36.8 C 158/87 H 98 11/06/21 00:24 161/85 H 11/05/21 23:27 36.6 C 78 18 174/83 H 92 11/05/21 22:17 76 11/05/21 19:16 36.8 C 77 20 155/86 H 92 Resident Activity Tracking Resident Involvement: Resident Care Provided Care Provided: Adult Hospital Medicine
[2021-11-06 07:06] LABS: Basophils # (auto) 0.04 K/uL (0-0.2); Basophils % (auto) 0.5 %; Eosinophils # (auto) 0.13 K/uL (0-0.5); Eosinophils % (auto) 1.5 %; Hematocrit (blood only) 41.1 % (42-52); Hemoglobin 14.3 g/dL (14.0-18.0); Immature Granulocytes # (auto) 0.03 K/uL (0.00-0.02); Immature Granulocytes % (auto) 0.3 %; Lymphocytes # (auto) 1.18 K/uL (1.2-3.4); Lymphocytes % (auto) 13.7 %; Mean Corpuscular Hemoglobin 30.6 pg (25-34); Mean Corpuscular Hgb Conc 34.8 g/dL (32-36); Mean Corpuscular Volume 87.8 fL (80-100); Mean Platelet Volume 9.3 fL (7.4-10.4); Monocytes # (auto) 1.06 K/uL (0.11-0.59); Monocytes % (auto) 12.3 %; Neutrophils % (auto) 71.7 %; Platelet Count 163 K/uL (130-400); RDW Coefficient of Variation 14.6 % (11.5-14.5); RDW Standard Deviation 46.9 fL (36.4-46.3); Red Blood Count 4.68 M/uL (4.7-6.1); White Blood Count 8.64 K/uL (4.8-10.8)
[2021-11-06 07:36] LABS: BUN Creatinine Ratio 9.8 (10-20); Calcium 9.1 mg/dl (8.5-10.1); Creatinine Clr Calc Pharmacy 43.3 ml/min; Est GFR (African American) 67.1 ml/min; Est GFR (Non-African American) 57.9 ml/min; Magnesium 1.9 mg/dl (1.7-2.4); Potassium 4.2 mmol/L (3.5-5.1)
--- NOTE | 2021-11-06 08:26 | XRay Report ---
XR chest 1V portable CLINICAL HISTORY: evaluate for atelectasis and increase in hemothorax TECHNIQUE: Single frontal radiograph of the chest was obtained. Comparison: None available at the time of this dictation. FINDINGS: No lines and tubes are seen. Cardiomegaly is noted. The lungs are clear. Blunting of the left costoph renic angle is seen. IMPRESSION: Left costophrenic angle blunting is unchanged likely representing hemothorax. No new abnormality is s een. ACT 112: Negative or not required by law. Electronically signed by: Prince Saucedo M.D. 11/06/2021 8:25 AM
[2021-11-06] MEDS: allopurinoL 300 MG TAB PO SCH (08:54)
[2021-11-06] MEDS: VERAPAMIL HCL 180 MG TABCR PO SCH (08:54)
[2021-11-06] MEDS: PANTOprazole 40 MG TAB PO SCH ×2 (08:54→20:36)
[2021-11-06] MEDS: MIRABEGRON ER 25 MG TAB PO SCH (08:54)
[2021-11-06] MEDS: FLUTICASONE/VILANTEROL 100/25MCG 14 PUFFS/INHALER INH SCH (08:55)
[2021-11-06] MEDS: LIDOCAINE 5% 1 PATCH TD SCH (08:55)
--- NOTE | 2021-11-06 09:02 | Pain Management Progress Note ---
Date of Service November 06, 2021 Assessment & Plan (1) Multiple fractures of ribs: Encounter type: initial encounter Fracture type: closed Laterality: left Qualified Code(s): S22.42XA - Multiple fractures of ribs, left side, initial encounter for closed fracture (2) Fall: Encounter type: initial encounter Qualified Code(s): W19.XXXA - Unspecified fall, initial encounter Plan: Patient is reporting adequate pain relief from Nucynta 50mg x 6 hours. Continue Lidocaine patch onto the affected area. Will sign off on the patient. Please contact with any questions or concerns. Admission and Anticipated Discharge Date Admission Date: November 04, 2021 Subjective Mr. Dinh is an 89 year old male that has been admitted after a fall at home. He sustained multiple rib fractures as well as chronic superior endplate compression deformities of T10 and L1. He was placed on Nucynta 50 mg every 6 hours if needed for pain relief. And reporting adequate pain relief. He has used the medication twice yesterday and not yet today. He denies any side effects from the medication. Patient has been able to move around in his bed and sit up with little pain. No complaints. Physical Exam Physical Exam: GENERAL: This is an 89 year old male that is sitting up in the hospital bed appearing well. HEAD/FACE: Normocephalic and atraumatic. EYES: No drainage or conjunctival injection. ENT: Nose without bleeding or discharge. Oral mucosa moist. NECK: Full ROM without apparent pain. No swelling or masses noted. RESPIRATORY: Patient with unlabored breathing. No signs of respiratory distress. CHEST/AXILLA: Chest movement symmetrical. No deformities noted. BACK: Moves with little difficulty SKIN: [place], warm and dry. No rash noted. MS/EXTREMITY: No swelling, no deformities. Moving extremities appropriately. NEURO: Alert. Speech is fluent. Cranial Nerves are grossly intact. PSYCH: Alert, pleasant, affect is calm
[2021-11-06] MEDS: TAPENTADOL HCL 50 MG TAB PO PRN (13:58)
[2021-11-06] MEDS: DOCUSATE SODIUM 100 MG CAP PO SCH (20:36)
[2021-11-06] MEDS: PRAVASTATIN SOD 40 MG TAB PO SCH (20:36)
[2021-11-07] MEDS: TAPENTADOL HCL 50 MG TAB PO PRN ×3 (00:49→15:25)
[2021-11-07] MEDS: allopurinoL 300 MG TAB PO SCH (07:34)
[2021-11-07] MEDS: PANTOprazole 40 MG TAB PO SCH ×2 (07:34→20:11)
[2021-11-07] MEDS: LIDOCAINE 5% 1 PATCH TD SCH (07:35)
[2021-11-07] MEDS: VERAPAMIL HCL 180 MG TABCR PO SCH (07:36)
[2021-11-07] MEDS: MIRABEGRON ER 25 MG TAB PO SCH (07:36)
[2021-11-07] MEDS: FLUTICASONE/VILANTEROL 100/25MCG 14 PUFFS/INHALER INH SCH (07:37)
[2021-11-07] MEDS: DICLOFENAC SOD 1% GEL 100 GM TUBE EXT SCH ×2 (10:21→20:11)
--- NOTE | 2021-11-07 14:10 | Hospitalist Progress Note ---
Date of Service November 07, 2021 Assessment & Plan (1) Fall: Plan: Mayo is a 89 year old male w/ PmHx of frequent falls, ambulatory dysfunction, asthma, HTN, HLD, prostate cancer s/p prostatectomy, CKD III, CVA admitted for fall w/ rib fractures to the left 3rd through 12th ribs. Traumatic Pneumothorax/hemothorax: -CXR w/ evidence for hemothorax and pneumothorax upon admission. -Repeat CXR 11/05 - pneumothorax no longer clearly appreciated. Rib fractures: -Multiple rib fractures from fall. -Pain management consulted: -poor candidate for nerve block -Lidocaine patch (up to 3), Nucynta 50mg q6h PRN. -diclofenac cream Dizziness/Ambulatory dysfunction: Orthostatic hypotension -Chronic, as above may have some relation to gait vs inner ear. -has been orthostatic in the past and this current admission. -Not on any meds to explain orthostasis. -Holding meclizine until further clarification. -NIXON stockings for orthostatic hypotension Fall: -EKG w/ normal sinus rhythm, BMP, CBC, U/A WNL. -Past PT notes w/ symptoms not reproducible w/ head shaking/Lorie. -Positive orthostatics this visit, may be contributing to falls. -Gait issues may contribute as well, may warrant further neuro evaluation outpatient. -PT/OT consulted - recommend PT & rehab or 22/02 home care. -Potential transfer to [facility] rehab, waiting on bed. -Fall precautions. History of CVA: -Holding Plavix 48 hours post fall. -Continue pravastatin. Pancreatic lesion: -Noted on CT abd/pevl, w/o change from CT chest 08/23 Lower urinary tract symptoms: -History of adenocarcinoma of prostate s/p prostatectomy. -condom catheter -continue mirabegron CKD III: -GFR 55, creat 1.17 on admission. -GFR 57, creat 1.12 11/07. -Daily BMP. HTN: -Cont verapamil HLD: -continue pravastatin Asthma: -Continue Advair, albuterol Dispo: PCU/Telemetry. [facility] accepted but will wait on open bed, most likely till Wednesday. Code statsu: DNR/DNI F/E/N: Regular diet DVT prophylaxis: SCDs (2) Rib fractures: (3) Lower urinary tract symptoms: (4) Pancreatic lesion: (5) Dizziness: (6) Ambulatory dysfunction: (7) CKD (chronic kidney disease) stage 3, GFR 30-59 ml/min: (8) HTN (hypertension): (9) Hyperlipidemia: (10) Asthma: (11) History of CVA (cerebrovascular accident): Admission and Anticipated Discharge Date Admission Date: November 04, 2021 Supervising Physician Co-Signing Physician Notes Resident Physician Supervision Note: I independently interviewed and examined the patient and verified the vines history and physical, reviewed labs and image studies and agree with resident Dr. Harris findings and care plan. Subjective No overnight events. Patient was feeling worse pain this morning but on recheck in the afternoon after receiving a morning dose of Nucynta as well as Voltaren he was feeling the same as yesterday with his pain. Denies shortness of breath, fevers, chills. Review of Systems Constitutional: as per Subjective / HPI Physical Exam Constitutional: WD/WN, vitals as above Eyes: PERRL, conjunctivae normal, anicteric sclerae Cardiovascular: RRR, no murmur, no edema Gastrointestinal (Abdomen): normal bowel sounds, soft, nontender, no hepatosplenomegaly Skin: Tenderness to palpation left lateral ribs 7-10. Slightly raised mildly erythematous area of ~2cm in diameter at left lower quadrant. Results & Data Results & Data ([facility]) Vital Signs (Past 12 Hours) Vital Signs Temp Pulse Pulse Pulse Pulse Resp BP 11/07/21 11:00 36.5 C 82 22 143/78 H 11/07/21 07:00 79 11/07/21 06:51 36.4 C L 77 20 152/92 H 11/07/21 02:59 36.8 C 75 19 138/81 Pulse Ox 11/07/21 11:00 92 11/07/21 07:00 11/07/21 06:51 97 11/07/21 02:59 99 Resident Activity Tracking Resident Involvement: Resident Care Provided Care Provided: Adult Hospital Medicine
[2021-11-07] MEDS: DOCUSATE SODIUM 100 MG CAP PO SCH (20:11)
[2021-11-07] MEDS: PRAVASTATIN SOD 40 MG TAB PO SCH (20:12)
[2021-11-08] MEDS: TAPENTADOL HCL 50 MG TAB PO PRN ×4 (02:37→20:23)
[2021-11-08] MEDS: VERAPAMIL HCL 180 MG TABCR PO SCH ×2 (07:37→09:28)
[2021-11-08] MEDS: MIRABEGRON ER 25 MG TAB PO SCH ×2 (07:37→09:28)
[2021-11-08] MEDS: PANTOprazole 40 MG TAB PO SCH ×3 (07:38→20:15)
[2021-11-08] MEDS: FLUTICASONE/VILANTEROL 100/25MCG 14 PUFFS/INHALER INH SCH (07:38)
[2021-11-08] MEDS: allopurinoL 300 MG TAB PO SCH ×2 (07:38→09:27)
[2021-11-08] MEDS: LIDOCAINE 5% 1 PATCH TD SCH (07:38)
[2021-11-08] MEDS: DICLOFENAC SOD 1% GEL 100 GM TUBE EXT SCH ×2 (07:40→20:15)
--- NOTE | 2021-11-08 10:13 | Hospitalist Progress Note ---
Date of Service November 08, 2021 Assessment & Plan (1) Fall: Plan: Mayo is a 89 year old male w/ PmHx of frequent falls, ambulatory dysfunction, asthma, HTN, HLD, prostate cancer s/p prostatectomy, CKD III, CVA admitted for fall w/ rib fractures. Traumatic pneumothorax/hemothorax: -CXR w/ evidence for hemothorax and pneumothorax upon admission on 11/04 -Repeat CXR 11/06 - pneumothorax no longer clearly appreciated, hemothorax unchanged -Will continue to hold Plavix in setting of hemothorax Rib fractures: -Multiple rib fractures from fall. CT chest 11/04- anterior fractures of L ribs 3- 8, posterior fractures of L ribs 8-10 -Pain management consulted: -poor candidate for nerve block -Lidocaine patch (up to 3), Nucynta 50mg q6h PRN. -diclofenac cream -Pain control improving on current regimen Dizziness/Ambulatory dysfunction: Orthostatic hypotension -Chronic, as above may have some relation to gait vs inner ear. -Has been orthostatic in the past and this current admission. -Not on any meds to explain orthostasis. -Holding meclizine until further clarification. -NIXON stockings for orthostatic hypotension Fall: -Past PT notes w/ symptoms not reproducible w/ head shaking/Lorie. -Positive orthostatics this visit, may be contributing to falls. -Consider neuro evaluation as outpatient. -PT/OT consulted - recommend PT & rehab or 22/02 home care. -Potential transfer to [facility] rehab, waiting on bed with planned placement 11/10 -Fall precautions History of CVA: -Holding Plavix 48 hours post fall. Will continue to hold Plavix given hemothorax noted on 11/06 CXR. -Continue pravastatin. Pancreatic lesion: -Noted on CT abd/pevl, w/o change from CT chest 08/23 Urinary incontinence: -History of adenocarcinoma of prostate s/p prostatectomy. -continue mirabegron CKD III: -GFR 55, creat 1.17 on admission. -GFR 57, creat 1.12 11/07. -No longer trending BMP HTN: -Continue verapamil -Elevated SBPs on 11/08 to 160s likely due to pain, continue to monitor HLD: -Continue pravastatin Asthma: -Continue Advair, albuterol Dispo: PCU/Telemetry. [facility] accepted but will wait on open bed, most likely till Friday 11/10 Code statsu: DNR/DNI F/E/N: Regular diet DVT prophylaxis: SCDs (2) Rib fractures: (3) Lower urinary tract symptoms: (4) Pancreatic lesion: (5) Dizziness: (6) Ambulatory dysfunction: (7) CKD (chronic kidney disease) stage 3, GFR 30-59 ml/min: (8) HTN (hypertension): (9) Hyperlipidemia: (10) Asthma: (11) History of CVA (cerebrovascular accident): Admission and Anticipated Discharge Date Admission Date: November 04, 2021 Supervising Physician Co-Signing Physician Notes Resident Physician Supervision Note: I independently interviewed and examined the patient and verified the vines history and physical, reviewed labs and image studies and agree with resident Dr. Wynne findings and care plan. Subjective No acute events overnight. Continues to report dull pain 4/10 severity over the sternum which is relieved by pain medication. Denies dyspnea, cough or chills. Eating appropriately. No other complaints at present. Review of Systems Constitutional: as per Subjective / HPI Physical Exam Constitutional: WD/WN, vitals as above Eyes: PERRL, conjunctivae normal, anicteric sclerae Respiratory: normal respiratory effort, lungs clear to auscultation No paradoxical breathing, equal chest rise and fall Cardiovascular: RRR, no murmur, no edema Chest (Breasts): Additional Comments: Mild tenderness to palpation along distribution of L ribs 7-12 Gastrointestinal (Abdomen): Soft, nondistended, mild tenderness to deep palpation of lateral edge of left upper quadrant but no rebound or guarding Results & Data Results & Data ([facility]) Vital Signs (Past 12 Hours) Vital Signs Temp Pulse Pulse Resp BP Pulse Ox 11/08/21 06:59 36.7 C 83 16 152/100 H 11/08/21 02:54 36.8 C 76 16 166/88 H 94 11/07/21 23:26 80 11/07/21 23:02 36.9 C 79 18 150/86 H 95 Resident Activity Tracking Resident Involvement: Resident Care Provided Care Provided: Adult [facility] Medicine
[2021-11-08] MEDS: DOCUSATE SODIUM 100 MG CAP PO SCH (20:15)
[2021-11-08] MEDS: PRAVASTATIN SOD 40 MG TAB PO SCH (20:16)
[2021-11-09] MEDS: TAPENTADOL HCL 50 MG TAB PO PRN ×3 (08:17→23:55)
[2021-11-09] MEDS: LIDOCAINE 5% 1 PATCH TD SCH (08:17)
[2021-11-09] MEDS: MIRABEGRON ER 25 MG TAB PO SCH (08:18)
[2021-11-09] MEDS: DICLOFENAC SOD 1% GEL 100 GM TUBE EXT SCH ×2 (08:18→20:45)
[2021-11-09] MEDS: PANTOprazole 40 MG TAB PO SCH ×2 (08:18→20:45)
[2021-11-09] MEDS: allopurinoL 300 MG TAB PO SCH (08:18)
[2021-11-09] MEDS: VERAPAMIL HCL 180 MG TABCR PO SCH (08:18)
[2021-11-09] MEDS: FLUTICASONE/VILANTEROL 100/25MCG 14 PUFFS/INHALER INH SCH (08:18)
--- NOTE | 2021-11-09 11:06 | Hospitalist Progress Note ---
Date of Service November 09, 2021 Assessment & Plan (1) Fall: Plan: Mayo is a 89 year old male w/ PmHx of frequent falls, ambulatory dysfunction, asthma, HTN, HLD, prostate cancer s/p prostatectomy, CKD III, CVA admitted for fall w/ rib fractures. Traumatic pneumothorax/hemothorax: -CXR w/ evidence for hemothorax and pneumothorax upon admission on 11/04 -Repeat CXR 11/06 - pneumothorax no longer clearly appreciated, hemothorax unchanged -Will continue to hold Plavix in setting of hemothorax. consider resuming in next 48hrs Rib fractures: -Multiple rib fractures from fall. CT chest 11/04- anterior fractures of L ribs 3- 8, posterior fractures of L ribs 8-10 -Pain management consulted: -poor candidate for nerve block -Lidocaine patch (up to 3), Nucynta 50mg q6h PRN. -diclofenac cream -Pain control improving on current regimen Dizziness/Ambulatory dysfunction: Orthostatic hypotension -Chronic, as above may have some relation to gait vs inner ear. -Has been orthostatic in the past and this current admission. -Not on any meds to explain orthostasis. -Holding meclizine -NIXON stockings for orthostatic hypotension Fall: -Past PT notes w/ symptoms not reproducible w/ head shaking/Lorie. -Positive orthostatics this visit, may be contributing to falls. -Consider neuro evaluation as outpatient. -PT/OT consulted - recommend PT & rehab or 22/02 home care. -Accepted to [facility] inpatient rehab, planned transfer on 11/10 but insurance declined. To have peer to peer review in am -Fall precautions History of CVA: -Holding Plavix 48 hours post fall. Will continue to hold Plavix given hemothorax noted on 11/06 CXR. -Continue pravastatin. Pancreatic lesion: -Noted on CT abd/pevl, w/o change from CT chest 08/23 Hematuria -Blood-tinged Sanderson catheter 11/09- may be secondary to urethral abrasion, Sanderson removed afterward -Continue to monitor Urinary incontinence: -History of adenocarcinoma of prostate s/p prostatectomy. -continue mirabegron -d/c sanderson CKD III: -GFR 55, creat 1.17 on admission. -GFR 57, creat 1.12 11/07. -No longer trending BMP HTN: -Continue verapamil -Elevated BPs 150s-160s/90s likely due to pain, continue to monitor HLD: -Continue pravastatin Asthma: -Continue Advair, albuterol Dispo: PCU/Telemetry, d/c to [facility] on Friday 11/10 Code status: DNR/DNI F/E/N: Regular diet DVT prophylaxis: SCDs (2) Rib fractures: (3) Lower urinary tract symptoms: (4) Pancreatic lesion: (5) Dizziness: (6) Ambulatory dysfunction: (7) CKD (chronic kidney disease) stage 3, GFR 30-59 ml/min: (8) HTN (hypertension): (9) Hyperlipidemia: (10) Asthma: (11) History of CVA (cerebrovascular accident): Admission and Anticipated Discharge Date Admission Date: November 04, 2021 Supervising Physician Co-Signing Physician Notes Resident Physician Supervision Note: I independently interviewed and examined the patient and verified the vines history and physical, reviewed labs and image studies and agree with resident Dr. Wynne findings and care plan. Subjective No acute events overnight. Per nurse, pt has been tired and complaining of the L lateral rib pain though it responds well to medication, hasn't had dyspnea. Was sleeping comfortably during evaluation today. Blood tinged sanderson catheter reportedly observed by attending physician and subsequently removed by nurse. Review of Systems Constitutional: as per Subjective / HPI Physical Exam Constitutional: WD/WN, vitals as above Sleeping comfortably Respiratory: normal respiratory effort, lungs clear to auscultation No paradoxical breathing, equal chest rise and fall Cardiovascular: RRR, no murmur, no edema Gastrointestinal (Abdomen): Soft, nondistended, no rebound or guarding Results & Data Results & Data ([facility]) Vital Signs (Past 12 Hours) Vital Signs Temp Pulse Pulse Resp BP Pulse Ox 11/09/21 08:00 74 11/09/21 07:03 36.7 C 74 20 158/83 H 96 11/09/21 06:34 36.6 C 75 20 165/93 H 97 11/09/21 03:40 36.5 C 76 20 175/87 H 100 11/09/21 02:00 36.5 C 77 22 165/95 H 97 11/08/21 23:25 85 11/08/21 22:59 36.6 C 80 22 153/88 H 95 Resident Activity Tracking Resident Involvement: Resident Care Provided Care Provided: Adult Hospital Medicine
[2021-11-09] MEDS: DOCUSATE SODIUM 100 MG CAP PO SCH (20:46)
[2021-11-09] MEDS: PRAVASTATIN SOD 40 MG TAB PO SCH (20:46)
[2021-11-10] MEDS: DICLOFENAC SOD 1% GEL 100 GM TUBE EXT SCH ×2 (09:19→20:19)
[2021-11-10] MEDS: VERAPAMIL HCL 180 MG TABCR PO SCH (09:20)
[2021-11-10] MEDS: PANTOprazole 40 MG TAB PO SCH ×2 (09:20→20:19)
[2021-11-10] MEDS: LIDOCAINE 5% 1 PATCH TD SCH (09:20)
[2021-11-10] MEDS: FLUTICASONE/VILANTEROL 100/25MCG 14 PUFFS/INHALER INH SCH (09:20)
[2021-11-10] MEDS: MIRABEGRON ER 25 MG TAB PO SCH (09:20)
[2021-11-10] MEDS: allopurinoL 300 MG TAB PO SCH (09:20)
--- NOTE | 2021-11-10 16:36 | Hospitalist Progress Note ---
Date of Service November 10, 2021 Assessment & Plan (1) Fall: Plan: Mayo is a 89 year old male w/ PmHx of frequent falls, ambulatory dysfunction, asthma, HTN, HLD, prostate cancer s/p prostatectomy, CKD III, CVA admitted for fall w/ rib fractures. Traumatic pneumothorax/hemothorax: -CXR w/ evidence for hemothorax and pneumothorax upon admission on 11/04 -Repeat CXR 11/06 - pneumothorax no longer clearly appreciated, hemothorax unchanged -Held Plavix in setting of hemothorax. To be resumed on discharge to [facility] on 11/11 Rib fractures: -Multiple rib fractures from fall. CT chest 11/04- anterior fractures of L ribs 3- 8, posterior fractures of L ribs 8-10 -Pain management consulted: -poor candidate for nerve block -Lidocaine patch (up to 3), Nucynta 50mg q6h PRN. -diclofenac cream -Pain control improving on current regimen Dizziness/Ambulatory dysfunction: Orthostatic hypotension -Chronic, as above may have some relation to gait vs inner ear. -Has been orthostatic in the past and this current admission. -Not on any meds to explain orthostasis -NIXON stockings for orthostatic hypotension Fall: -Past PT notes w/ symptoms not reproducible w/ head shaking/Lorie. -Positive orthostatics this visit, may be contributing to falls. -Consider neurology evaluation as outpatient. -PT/OT consulted - recommend SNF placement -Accepted to [facility] inpatient rehab, planned transfer on 11/11 History of CVA: -Held Plavix after fall. Will continue to hold Plavix given hemothorax noted on 11/06 CXR. Resume on discharge. -Continue pravastatin. Pancreatic lesion: -Noted on CT abd/pelvis, w/o change from CT chest 08/23 Hematuria -Blood-tinged Parrish catheter 11/09- may be secondary to urethral abrasion, Parrish removed afterward -Continue to monitor Urinary incontinence: -History of adenocarcinoma of prostate s/p prostatectomy. -Continue mirabegron -Parrish removed CKD III: -GFR 55, creatinine 1.17 on admission. -GFR 57, creatinine 1.12 11/07 HTN: -Continue verapamil -Elevated BPs 150s-160s/90s likely due to pain, continue to monitor HLD: -Continue pravastatin Asthma: -Continue Advair, albuterol (2) Left-sided chest wall pain: (3) Rib fractures: (4) History of CVA (cerebrovascular accident): (5) Lower urinary tract symptoms: (6) Constipation: (7) Dementia: (8) Pancreatic lesion: (9) Dizziness: (10) Ambulatory dysfunction: Admission and Anticipated Discharge Date Admission Date: November 04, 2021 Supervising Physician Co-Signing Physician Notes I personally examined the patient and verified all vines points of history and exam, discussed case, and agree with decision making with Dr Wynne Pain reasonably well controlled. Awaiting insurance decision on SNF. at the bedside notes that in his current state there is no way she could care for him at home. Vitals noted, in general he is awake and alert pleasant no distress. HEENT normocephalic atraumatic mucous membranes moist. Breathing unlabored no accessory muscle use good effort. Skin shows no rashes no pallor or icterus. Neuro without focal deficits. Thal/rib fractures/pneumothorax/weaknesspain reasonably well controlled, everything else stable, definitely weak, would benefit from rehab with a goal of hopefully being able to get back home with his wifefor SNF when/if improved otherwise as above Subjective No acute events overnight, pt doing well and reports minimal pain. States pain medication helps him and he feels better compared to admission. No acute complaints at present. Review of Systems Constitutional: as per Subjective / HPI Physical Exam Constitutional: WD/WN, vitals as above Eyes: PERRL, conjunctivae normal, anicteric sclerae Respiratory: normal respiratory effort, lungs clear to auscultation No paradoxical breathing, equal chest rise and fall Cardiovascular: RRR, no murmur, no edema Gastrointestinal (Abdomen): Soft, nondistended, nontender Results & Data Results & Data ([facility]) Vital Signs (Past 12 Hours) Vital Signs Temp Pulse Pulse Resp BP Pulse Ox 11/10/21 15:30 36.5 C 75 21 145/87 H 95 11/10/21 10:59 36.5 C 86 17 140/76 94 11/10/21 10:57 79 11/10/21 07:11 36.8 C 79 20 159/86 H 93 Resident Activity Tracking Resident Involvement: Resident Care Provided Care Provided: Adult Hospital Medicine (1) Fall Encounter type: initial encounter Qualified Code(s): W19.XXXA - Unspecified fall, initial encounter
--- NOTE | 2021-11-10 16:39 | Billing Data ---
Date of Service November 10, 2021 Coding Level of Care Code 87947 Subseq Hosp Care Lvl 2
[2021-11-10] MEDS: TAPENTADOL HCL 50 MG TAB PO PRN ×2 (17:28→23:34)
[2021-11-10] MEDS: PRAVASTATIN SOD 40 MG TAB PO SCH (20:19)
[2021-11-10] MEDS: DOCUSATE SODIUM 100 MG CAP PO SCH (20:19)
[2021-11-11] MEDS: LIDOCAINE 5% 1 PATCH TD SCH (08:15)
[2021-11-11] MEDS: MIRABEGRON ER 25 MG TAB PO SCH (08:15)
[2021-11-11] MEDS: PANTOprazole 40 MG TAB PO SCH (08:15)
[2021-11-11] MEDS: allopurinoL 300 MG TAB PO SCH (08:16)
[2021-11-11] MEDS: FLUTICASONE/VILANTEROL 100/25MCG 14 PUFFS/INHALER INH SCH (08:16)
[2021-11-11] MEDS: DICLOFENAC SOD 1% GEL 100 GM TUBE EXT SCH (08:16)
[2021-11-11] MEDS: VERAPAMIL HCL 180 MG TABCR PO SCH (08:17)
--- NOTE | 2021-11-11 10:02 | Discharge Summary ---
Date of Service November 11, 2021 Admission HPI Per Admitting Provider 89 YOM with past medical history of: Vertigo with frequent falls, ambulatory dysfunction, asthma, HTN, HLD, Gout, prostate cancer, constipation, CKDIII, CVA. Patient was brought in today via EMS for fall at home. The patient was found to have multiple bilateral rib fractures on imaging without pneumothorax, flail chest, lung contusion, or cervical injury. The patient was getting up to go to the bathroom around 0730 this morning, he recalls feeling dizzy when he got up so he sat on the edge of the bed, felt better and ambulated to the bathroom, without his walker, made it to the door of the bathroom and felt dizzy again, he fell into the wall and then down on his right side. His was unable to get him up so 911 was called. IN the EMD the patient had C-spine cleared radiographically and clinically. He had CT scan of abdomen, chest and pelvis completed, had pelvis xray and chest xray, and head CT scan. CT scan of abdomen and pelvis and chest revealed- acute fractures the anterior left third through eighth ribs as well as posterior fractures of the eighth through 10th ribs and 8th rib with multiple fracture sites and small hemothorax. His pain was controlled with fentanyl on arrival. Hospitalist was notified for admission following CT completion of the chest. The patient on exam is not hypoxic, has good inspiratory effort without pain, is able to cough and was also surprisingly able to help rolling bed to change his sheets and grab on to me and lift his upper torso off the bed without pain. Patient will be admitted to continue with pain control, ICS with splinting of his rib fractures, consult pain management for evaluation of possible need for block. Main goal will be to prevent sequelae of atelectasis/pneumonia, follow hemothorax, and avoid oversedation for delirium. Patient is DNR/DNI Admission Exam Per Admitting Provider General: awake, alert, no apparent distress Head: Normocephalic, atraumatic ENT: PERRLA, EOMI, no pharyngeal exudate, mucous membranes moist Neuro: AAO x 3, speech clear and appropriate, strength intact bilaterally 5/5, sensation intact and equal all extremities and dermatomes, no pronator drift Chest: equal rise and fall of the chest, no accessory muscle use, no heaves or thrills, Clear to auscultation, on room air, Cardiac: Regular rate and rhythm, telemetry reviewed, skin warm dry, cap refill <3 seconds, peripheral pulses +2 no JVD, no murmur, no edema GI: NABS x 4 quadrants, soft, nontender to palpation, no rebound, guarding or tenderness : frequency and small amount of void- will place condom cath on for now MSK: Now head pain or hematoma, cervical spine without pain or steppoffs- full range of motion without pain or crepitus, no facial trauma, shoulders without pain and full ROM, thoracic and lumbar spine without stepoffs or pinpoint tenderness, hips and pelvis without instability or pain, full range of motion to the hips, bilaterall femurs and knees without pain or hematoma, able to bear weight. Extremities: Normal inspection, no peripheral edema or erythema, calfs nontender to palpation Psych: Normal mood and affect Principal Diagnosis Rib fractures due to fall Discharge Exam Constitutional WD/WN, vitals as above Eyes PERRL, conjunctivae normal, anicteric sclerae Respiratory normal respiratory effort, lungs clear to auscultation Cardiovascular RRR, no murmur, no edema Chest (Breasts) Additional Comments: No tenderness to palpation along rib distribution Gastrointestinal (Abdomen) normal bowel sounds, soft, nontender, no hepatosplenomegaly Discharge Data Allergies Allergy/AdvReac Type Severity Reaction Status Date / Time No Known Allergies Allergy Verified 11/04/21 11:55 Consultations 11/04/21 16:57 Consult Pain Management Routine Ordered Studies 11/04/21 09:31 CT cervical spine wo con Stat CT head/brain wo con Stat 11/04/21 11:14 CT abd pelvis IV con only Stat 11/04/21 13:08 CT chest diagnostic wo con Stat Hospital Course (1) Fall: Mayo is a 89 year old male w/ PmHx of frequent falls, ambulatory dysfunction, asthma, HTN, HLD, prostate cancer s/p prostatectomy, CKD III, CVA admitted for fall w/ rib fractures. Traumatic pneumothorax/hemothorax: -CXR w/ evidence for hemothorax and pneumothorax upon admission on 11/04 -Repeat CXR 11/06 - pneumothorax no longer clearly appreciated, hemothorax unchanged -Held Plavix in setting of hemothorax. To be resumed on discharge to [facility] on 11/11 Rib fractures: -Multiple rib fractures from fall. CT chest 11/04- anterior fractures of L ribs 3- 8, posterior fractures of L ribs 8-10 -Pain management consulted: -poor candidate for nerve block -Lidocaine patch, Nucynta 50mg q6h PRN. -diclofenac cream -Pain controlled on current regimen. Pain free at time of discharge on 11/11. Dizziness/Ambulatory dysfunction: Orthostatic hypotension -Chronic, as above may have some relation to gait vs inner ear. -Has been orthostatic in the past and this current admission. -Not on any meds to explain orthostasis -NIXON stockings for orthostatic hypotension Fall: -Past PT notes w/ symptoms not reproducible w/ head shaking/Lorei. -Positive orthostatics this visit, may be contributing to falls. -Consider neurology evaluation as outpatient. -PT/OT consulted - recommend SNF placement -Accepted to [facility] inpatient rehab, planned transfer and discharge on 11/11 History of CVA: -Held Plavix after fall. Will continue to hold Plavix given hemothorax noted on 11/06 CXR. Resume on discharge. -Continue pravastatin. Consider switch to high-intensity statin. Pancreatic lesion: -Noted on CT abd/pelvis, w/o change from CT chest 08/23 Hematuria -Blood-tinged Parrish catheter 11/09- may be secondary to urethral abrasion, Parrish removed afterward -Continue to monitor Urinary incontinence: -History of adenocarcinoma of prostate s/p prostatectomy. -Continue mirabegron -Parrish removed CKD III: -GFR 55, creatinine 1.17 on admission. -GFR 57, creatinine 1.12 11/07 HTN: -Continue verapamil -Elevated BPs 150s-160s/90s likely due to pain, continue to monitor HLD: -Continue pravastatin. Consider switch to high-intensity statin as above Asthma: -Continue Advair, albuterol (2) Left-sided chest wall pain: (3) Rib fractures: (4) History of CVA (cerebrovascular accident): (5) Lower urinary tract symptoms: (6) Constipation: (7) Dementia: (8) Pancreatic lesion: (9) Dizziness: (10) Ambulatory dysfunction: Total Time Total Time Spent Total Time Spent (In Minutes): <30 Discharge Plan Discharge Items Patient Disposition: Transfer Care Home Fac Reason For Visit: MULTIPLE RIB FRACTURES Discharge Diagnosis: Fall, Rib fractures Activity: Per Instructions section Non-emergency contact: Primary Care Provider Call non-emergency contact if: your symptoms worsen, your pain is worsening and your temperature is above 101 Follow-up/Referrals: Zev Valdovinos MD [Primary Care Provider] - Diet: Regular Addtl Attending Provider Instructions: Mayo is a 89 year old male w/ PmHx of frequent falls, ambulatory dysfunction, asthma, HTN, HLD, prostate cancer s/p prostatectomy, CKD III, CVA admitted for fall w/ rib fractures. Discharged to [facility] on 11/11. Traumatic pneumothorax/hemothorax: -CXR w/ evidence for hemothorax and pneumothorax upon admission on 11/04 -Repeat CXR 11/06 - pneumothorax no longer clearly appreciated, hemothorax unchanged -Held Plavix in setting of hemothorax. To be resumed on discharge to [facility]. Rib fractures: -Multiple rib fractures from fall. CT chest 11/04- anterior fractures of L ribs 3- 8, posterior fractures of L ribs 8-10 -Pain management consulted: -poor candidate for nerve block -Lidocaine patch (up to 3), Nucynta 50mg q6h PRN. -diclofenac cream -Pain control improving on current regimen Dizziness/Ambulatory dysfunction: Orthostatic hypotension -Chronic, as above may have some relation to gait vs inner ear. -Has been orthostatic in the past and this current admission. -Not on any meds to explain orthostasis -NIXON stockings for orthostatic hypotension Fall: -Past PT notes w/ symptoms not reproducible w/ head shaking/Lorie. -Positive orthostatics this visit, may be contributing to falls. -Consider neurology evaluation as outpatient. -PT/OT consulted - recommend PT & rehab or 22/02 home care. -Accepted to [facility] inpatient rehab History of CVA: -Held Plavix after fall. Will continue to hold Plavix given hemothorax noted on 11/06 CXR. Resume on discharge. -Continue pravastatin. Pancreatic lesion: -Noted on CT abd/pevl, w/o change from CT chest 08/23 Hematuria -Blood-tinged Parrish catheter 11/09- may be secondary to urethral abrasion, Parrish removed afterward -Continue to monitor Urinary incontinence: -History of adenocarcinoma of prostate s/p prostatectomy. -Continue mirabegron -Parrish removed CKD III: -GFR 55, creatinine 1.17 on admission. -GFR 57, creatinine 1.12 11/07 HTN: -Continue verapamil -Elevated BPs 150s-160s/90s likely due to pain, continue to monitor HLD: -Continue pravastatin Asthma: -Continue Advair, albuterol Pending Studies at Discharge: No Stand-Alone Forms: My [facility] Skilled Items Patient informed of condition?: Yes DNR: Yes Discharge Level of Care: Skilled Communicable Disease: No Discharge Prognosis: Stable Lines: None Urinary Catheter: No Medications and DC Order Prescriptions: Continued pantoprazole [Protonix] 40 mg tablet,delayed release (DR/EC) 40 mg PO BID Qty: 60 RF: 11 lorazepam 0.5 mg tablet 0.5 mg PO BID PRN (Reason: dizziness or vertigo) Qty: 30 RF: 5 clopidogrel 75 mg tablet 75 mg PO QAM Qty: 90 RF: 3 albuterol sulfate [Ventolin HFA] 90 mcg/actuation HFA aerosol inhaler 2 puff INH Q6H PRN (Reason: shortness of breath or wheezing) Qty: 18 RF: 3 docusate sodium [Colace] 100 mg Capsule 300 mg PO HS RF: 0 verapamil 180 mg Tablet Extended Release 180 mg PO QAM Qty: 30 RF: 0 pravastatin 40 mg tablet 40 mg PO HS RF: 0 Myrbetriq 50 mg tablet extended release 24 hr 50 mg PO QAM RF: 0 allopurinol 300 mg tablet 300 mg PO QAM RF: 0 fluticasone propion-salmeterol [Advair Diskus] 100-50 mcg/dose blister with device 1 inh inhalation BID RF: 0 meclizine 25 mg Tablet 25 mg PO Q8H PRN (Reason: dizziness) Qty: 30 RF: 0 Discharge Orders: Discharge Order (Routine); Ordered 11/11/21 Ordered By: Dc Wynne Admission Data Admit Date/Time: 11/04/21 15:30 Attending Provider: Tres Recinos Admit Provider: Chuck Way Primary Care Provider: Zev Valdovinos Other Providers: Arden Jon ; Chuck Way ; Ruby,[facility] ; Gisselle Paiz Other Interventions: Discharge Summary Assessment (RN) Last Done: 11/11/21 12:02 Supervising Physician Co-Signing Physician Notes I personally examined the patient and verified all vines points of history and exam, discussed case, and agree with decision making with Dr Wynne resting comfortably. approved for SNF, stable for transfer there today Vitals noted, in general he is resting comfortably, no distress. HEENT normocephalic atraumatic mucous membranes moist. Breathing unlabored no accessory muscle use good effort. Skin shows no rashes no pallor or icterus. Neuro without focal deficits at rest. Thal/rib fractures/pneumothorax/weaknesspain reasonably well controlled, everything else stable, definitely weak, would benefit from SNF/rehab emphasis - stable for transfer otherwise as above Resident Activity Tracking Resident Involvement: Resident Care Provided Care Provided: Adult Hospital Medicine
--- NOTE | 2021-11-11 16:27 | Billing Data ---
Date of Service November 11, 2021 Coding Level of Care Code D/C DAY MANAGEMENT <30 MINS
== END 2021-11-11 15:54 | DRG 200 ==
LOC: ED 09:18 → SUATTDRO 15:30 → 2E 15:30
DX: Z86.73 Personal history of transient ischemic attack (TIA), and cerebral infarction without residual deficits; Z90.79 Acquired absence of other genital organ(s); E78.5 Hyperlipidemia, unspecified; K59.00 Constipation, unspecified; W19.XXXA Unspecified fall, initial encounter; K86.9 Disease of pancreas, unspecified; I12.9 Hypertensive chronic kidney disease with stage 1 through stage 4 chronic kidney disease, or unspecified chronic kidney disease; Z86.19 Personal history of other infectious and parasitic diseases; Z66 Do not resuscitate; S22.42XA Multiple fractures of ribs, left side, initial encounter for closed fracture; J45.909 Unspecified asthma, uncomplicated; R32 Unspecified urinary incontinence; N18.30 Chronic kidney disease, stage 3 unspecified; S27.2XXA Traumatic hemopneumothorax, initial encounter; Z85.46 Personal history of malignant neoplasm of prostate; F03.90 Unspecified dementia, unspecified severity, without behavioral disturbance, psychotic disturbance, mood disturbance, and anxiety; M10.9 Gout, unspecified